=== PATIENT | female | born 1950 | race Caucasian/White ===

== ENCOUNTER → 2022-08-23 | Outpatient (CLI) | payer OTHER, SELFPAY ==
[2022-08-23 12:50] LABS: Absolute Lymphocyte Count 2.15 X10^3/uL (0.83-4.51); Absolute Neutrophil Count 3.7 X10^3/uL (2.0-7.7); Basophil# 0.02 X10^3/uL; Basophil% 0.3 % (0-1); Eosinophil# 0.06 X10^3/uL; Eosinophils% 0.9 % (0-5); Hematocrit 36.5 % (37-47); Lymphocyte # 2.15 X10^3/ul (0.83-4.51); Lymphocyte % 33.4 % (19-41); Mean Corp Hgb Conc 32.9 g/dL (32-36); Mean Corpuscular Hgb 31.6 pg (27.0-32.0); Mean Corpuscular Volume 96.1 fL (81-99); Mean Platelet Vol. 12.1 fl (6.2-12.0); Monocyte% 7.8 % (0-10); NRBC Flagged by Analyzer 0 % (0-5); Neutrophil % 57.4 % (47-70); Platelet Count 290 K/mm3 (150-450); RBC Distribution Width CV 13.9 % (11.6-14.6); RBC Distribution Width SD 49.3 fl (35.1-43.9); White Blood Count 6.4 K/mm3 (4.4-11.0)
[2022-08-23 13:27] LABS: ALB/GLOB Ratio 0.9 RATIO (0.9-2.4); AST(SGOT) 12 U/L (15-37); Alanine Aminotransfer ALT/SGPT 25 U/L (13-56); Albumin, Serum 3.5 g/dL (3.2-5.0); Alkaline Phosphatase 99 U/L (45-117); Anion Gap 7 (5-15); BUN 22 mg/dL (7-18); BUN/Creat Ratio 20.4 RATIO (10-20); Calcium,Total 8.8 mg/dL (8.5-10.1); Chloride 107 mmol/L (98-107); Cholesterol 287 mg/dL (200); Creatinine, Serum 1.08 mg/dL (0.55-1.02); EST Glomerular Filtration Rate 53 mL/min (>60); Est Glom Filt Rate - Afr Amer 65 mL/min (>60); Free T3 2.6 pg/mL (2.18-3.98); Glucose 128 mg/dL (74-106); High Density Lipoprotein 37 mg/dL; Potassium 3.5 mmol/L (3.5-5.1); Protein, Total 7.5 g/dL (6.4-8.2); Sodium Level 140 mmol/L (136-145); T4 Free Direct 0.79 ng/dL (0.76-1.46); Thyroid Stim Hormone (TSH) 1.54 uIU/mL (0.358-3.74); Triglycerides 279 mg/dL; Very Low Density Lipoprotein 56 mg/dL (5-40)
== END | disposition home or self-care (01) ==
LOC: LAB 11:36
PROVIDERS: PCP Family Medicine; Visit Provider Family Medicine
DX: E03.9 Hypothyroidism, unspecified (principal); E78.5 Hyperlipidemia, unspecified; Z51.81 Encounter for therapeutic drug level monitoring
CPT/HCPCS: 36415; 80053; 80061; 84439; 84443; 84481; 85025

== ENCOUNTER → 2023-02-24 | Outpatient (CLI) | payer OTHER, SELFPAY ==
[2023-02-24 11:52] LABS: Cholesterol 316 mg/dL (200); High Density Lipoprotein 52 mg/dL; Triglycerides 106 mg/dL; Very Low Density Lipoprotein 21 mg/dL (5-40)
== END | disposition home or self-care (01) ==
LOC: BFHLAB 09:53
PROVIDERS: PCP Family Medicine; Referring Provider Family Medicine; Visit Provider Family Medicine
DX: E78.5 Hyperlipidemia, unspecified (principal)
CPT/HCPCS: 36415; 80061

== ENCOUNTER → 2023-05-28 | Outpatient (CLI) | payer OTHER, SELFPAY ==
[2023-05-28 15:57] LABS: AST(SGOT) 9 U/L (15-37); Alanine Aminotransfer ALT/SGPT 18 U/L (13-56); Albumin, Serum 3.8 g/dL (3.2-5.0); Alkaline Phosphatase 92 U/L (45-117); Anion Gap 8 (5-15); BUN 27 mg/dL (7-18); BUN/Creat Ratio 24.3 RATIO (10-20); Calcium,Total 9.3 mg/dL (8.5-10.1); Chloride 110 mmol/L (98-107); Cholesterol 292 mg/dL (200); Creatinine, Serum 1.11 mg/dL (0.55-1.02); EST Glomerular Filtration Rate 52 mL/min (>60); Est Glom Filt Rate - Afr Amer 62 mL/min (>60); Globulin 3.9 g/dL (2.2-4.2); Glucose 122 mg/dL (74-106); High Density Lipoprotein 56 mg/dL; Potassium 3.9 mmol/L (3.5-5.1); Protein, Total 7.7 g/dL (6.4-8.2); Sodium Level 140 mmol/L (136-145); Triglycerides 93 mg/dL; Very Low Density Lipoprotein 19 mg/dL (5-40)
== END | disposition home or self-care (01) ==
PROVIDERS: PCP Family Medicine; Referring Provider Family Medicine; Visit Provider Family Medicine
DX: E78.5 Hyperlipidemia, unspecified (principal); Z51.81 Encounter for therapeutic drug level monitoring
CPT/HCPCS: 36415; 80053; 80061

== ENCOUNTER → 2023-09-01 | Outpatient (CLI) | payer OTHER, SELFPAY ==
[2023-09-01 15:16] LABS: Absolute Lymphocyte Count 2.06 X10^3/uL (0.83-4.51); Absolute Neutrophil Count 2.8 X10^3/uL (2.0-7.7); Basophil# 0.03 X10^3/uL; Basophil% 0.5 % (0-1); Eosinophil# 0.13 X10^3/uL; Eosinophils% 2.3 % (0-5); Hematocrit 28.7 % (37-47); Hemoglobin 8.6 g/dL (12.0-15.0); Lymphocyte # 2.06 X10^3/ul (0.83-4.51); Lymphocyte % 36.9 % (19-41); Mean Platelet Vol. 12.4 fl (6.2-12.0); Monocyte# 0.59 X10^3/uL; Monocyte% 10.6 % (0-10); NRBC Flagged by Analyzer 0 % (0-5); Neutrophil # 2.76 X10^3/uL (2.7-7.7); Neutrophil % 49.5 % (47-70); Platelet Count 331 K/mm3 (150-450); RBC Distribution Width CV 13.4 % (11.6-14.6); RBC Distribution Width SD 49.1 fl (35.1-43.9); Red Blood Count 2.87 M/mm3 (4.2-5.4); White Blood Count 5.6 K/mm3 (4.4-11.0)
[2023-09-01 15:35] LABS: Hemoglobin A1c 5.8 % (3.8-5.6)
[2023-09-01 15:46] LABS: ALB/GLOB Ratio 0.9 RATIO (0.9-2.4); AST(SGOT) 13 U/L (15-37); Alanine Aminotransfer ALT/SGPT 20 U/L (13-56); Albumin, Serum 3.6 g/dL (3.2-5.0); Alkaline Phosphatase 94 U/L (45-117); Anion Gap 7 (5-15); BUN 26 mg/dL (7-18); BUN/Creat Ratio 21.7 RATIO (10-20); Calcium,Total 8.7 mg/dL (8.5-10.1); Chloride 111 mmol/L (98-107); Cholesterol 252 mg/dL (200); EST Glomerular Filtration Rate 47 mL/min (>60); Est Glom Filt Rate - Afr Amer 57 mL/min (>60); Globulin 3.8 g/dL (2.2-4.2); Glucose 133 mg/dL (74-106); High Density Lipoprotein 54 mg/dL; Potassium 4.1 mmol/L (3.5-5.1); Protein, Total 7.4 g/dL (6.4-8.2); Sodium Level 141 mmol/L (136-145); Thyroid Stim Hormone (TSH) 1.37 uIU/mL (0.358-3.74); Triglycerides 120 mg/dL; Very Low Density Lipoprotein 24 mg/dL (5-40)
== END | disposition home or self-care (01) ==
LOC: BFHLAB 13:06
PROVIDERS: PCP Family Medicine; Visit Provider Family Medicine
DX: E78.5 Hyperlipidemia, unspecified (principal); I10 Essential (primary) hypertension; Z51.81 Encounter for therapeutic drug level monitoring; R73.01 Impaired fasting glucose
CPT/HCPCS: 36415; 80053; 80061; 83036; 84443; 85025

== ENCOUNTER → 2023-09-23 | Outpatient (CLI) | payer OTHER, SELFPAY ==
[2023-09-23 14:40] LABS: Hematocrit 29.5 % (37-47)
== END | disposition home or self-care (01) ==
LOC: PAVLAB 14:29
PROVIDERS: PCP Family Medicine; Referring Provider Surgery; Visit Provider Surgery
DX: D64.9 Anemia, unspecified (principal)
CPT/HCPCS: 36415; 85014; 85018

== ENCOUNTER 2023-10-15 07:18 | Day surgery (SDC) | payer OTHER, SELFPAY ==
[2023-10-15] VITALS (7 sets, daily range): BP systolic 106–140; BP diastolic 64–83; PULSE 78–103; RESP 16–18; TEMP 36.3–36.7; O2SAT 95–100; BMI 34.7
[2023-10-15] MEDS: Lactated Ringers 1,000 ML 15 ML IV (07:48)
--- NOTE | 2023-10-15 07:55 | PCM.HP.BLA ---
History and Physical Date of Admission: 10/15/23 Date of Service: 09/22/23 MR#: [id number] Acct: [id number] Name: JUANI TRINH Rep #: [id number] : 1950 Provider: Dr. Hafsa Lindsay MD Age/Sex: 73/F Location: [facility] Status: Signed Intake Vital Signs 09/22/2314:34 Weight: 202 lb BP 164/83 H Blood Pressure Location Rt brachial Position Sitting Respiration 17 Pulse 100 Pulse Source Monitor Pulse Oximetry (%) 98 Oxygen Delivery Method room air Intake Visit Reasons: RECTAL BLEEDING Chief Complaint: rectal bleeding Is patient in pain?: No Allergies No Known Allergies Allergy (Verified 09/22/23 14:35) Medications Hydrocortisone 2.5%/lidocaine 5% suppository (cmpd) (hydrocortisone 2.5%/lidocaine 5% suppository (compound)) #30 ea 09/22/23 [Rx Confirmed 09/22/23] bisoprolol 2.5 mg-hydrochlorothiazide 6.25 mg tablet 1 tab PO DAILY 09/22/23 [History Confirmed 09/22/23] diphenhydramine 25 mg-acetaminophen 500 mg tablet (Acetaminophen PM Extra Strength) 1 tab PO QHS 09/22/23 [History Confirmed 09/22/23] fluoxetine 10 mg capsule 10 mg PO DAILY 09/22/23 [History Confirmed 09/22/23] gemfibrozil 600 mg tablet 600 mg PO BID 09/22/23 [History Confirmed 09/22/23] latanoprost 0.005 % eye drops 1 drp ophthalmic (eye) QPM 09/22/23 [History Confirmed 09/22/23] metformin 500 mg tablet 500 mg PO DAILY 09/22/23 [History Confirmed 09/22/23] pravastatin 10 mg tablet 10 mg PO DAILY 09/22/23 [History Confirmed 09/22/23] PFSH Surgical History (Updated 09/22/23 @ 14:32 by Hilaria Rodriguez) H/O: hysterectomy Family History (Updated 09/22/23 @ 14:33 by Hilaria Rodriguez) Mother Hypertension Bleeding disorderSister HypertensionBrother Hypertension Kidney disease Social History (Updated 09/22/23 @ 14:33 by Hilaria Rodriguez) Smoking Status: Former smoker HPI HPI HPI: 73-year-old female presents for EGD and colonoscopy due to anemia. Patient's last hemoglobin was 8.6 previously was 12 or between 10 and 11. Patient's never had previous EGD. Patient states she has had bright red blood with clots noticed initially September 03 for 2 days then she did not have it for a week and she has been having it about every other day since. Patient does have hemorrhoids denies any pain with her hemorrhoids. Patient last colonoscopy was in [address] Newberry negative for per patient. Patient states she does feel bloated often denies any nausea or vomiting denies any reflux symptoms. Patient states she has bowel movements daily. ROS General General: Yes weight change and fatigue; No appetite, colon cancer, breast cancer or weakness HEENT HEENT: No difficulty swallowing, eye injury, eye surgery, swollen glands or hoarseness Endo Endocrine: No thyroid disease, diabetes mellitus, thyroid cancer, Hair loss, heat intolerance or cold intolerance Skin Skin: No rash or changing moles Musc Musculoskeletal: Yes back problems; No arthritis, rheumatoid arthritis, gout or joint pain Cardio Cardiovascular: Yes high blood pressure; No murmur, pacemaker, heart disease, atrial fibrillation, heart attack, heart stent, palpitations, shortness of breat with exertion or chest pain Psych Psychiatric: Yes anxiety; No depression or hearing voices Resp Respiratory: Yes shortness of breath, No sleep apnea, No cough, No COPD, No asthma, No emphysema and No wheezing Gastro Gastrointestinal: No abdominal pain, No nausea or vomiting, No diarrhea, No constipation, Yes blood in stool, No acid reflux, Yes hemorrhoids, No ulcers, No gallbladder problem and No black,tarry stools Anirudh Hematologic: No blood thinners, No blood disorders, No bleeding, No anemia and No blood clots Neuro Neurologic: No system reviewed and no additional complaints, except as documented, No as per HPI, No abnormal gait, No abnormal hearing, No abnormal movements, No abnormal speech, No behavioral changes, No burning sensations, No confusion, No convulsions, No disequilibrium, No dizziness, No localized weakness, No frequent falls, No headache(s), No lack of coordination, No loss of vision, No memory loss, Yes numbness, No other visual disturbances, No radicular pain, No restless legs, No sensory deficit, No syncope, Yes tingling, No tremor(s), No weakness and No other Exam Const General: cooperative, healthy appearing, comfortable and no acute distress [facility] Head: normocephalic and atraumatic Neck Neck: supple Resp Effort & Inspection: normal respiratory effort Cardio Rate: regular rate GI Inspection: non-distended Palpation: soft and nontender Other: Patient has grade 3 internal hemorrhoids on the right side which appear to be irritated likely source of bleeding, no masses on LEMUEL. Skin General: no rashes or lesions noted Neuro General: CN's II-XI intact bilaterally Extrem General: normal to inspection Psych Mental Status: mental status grossly normal Attitude: cooperative Assessment and Plan Assessment and Plan (1) Hemorrhoids: Status: Acute (2) Anemia: Status: Acute (3) Blood in stool: Status: Acute Orders: Orders HH, Hemoglobin & Hematocrit 09/23/23 D64.9 - Anemia, unspecified Dr. Hafsa Lindsay MD Colonoscopy 10/15/23 Mary Grace MICHEL PA-C EGD 10/15/23 Mary Grace MICHEL PA-C Medications: New Hydrocortisone 2.5%/lidocaine 5% suppository (cmpd) (hydrocortisone 2.5%/lidocaine 5% suppository (compound)) BID 30 ea 0RF hemorrhoids K64.9 - Unspecified hemorrhoids Dr. Hafsa Lindsay MD Plan Give patient suppositories for her hemorrhoids see if that helps improve the irritation as likely they are bleeding some. Also plan for an EGD and colonoscopy. I have discussed the above with the patient. I have offered the patient esophagogastroduodenoscopy and colonoscopy for evaluation. I have explained the risks/benefits of the procedure and described the procedure. I have discussed the risks with the patient, including but not limited to: infection, bleeding, perforation of the GI tract requiring emergency surgery, inability to complete the procedure, injury to any internal organs, complications of anesthesia, etc. - the patient understands and agrees to proceed. I have answered all the patient's questions to the patient's satisfaction and the patient has no further questions. The patient has been given instructions for the colon cleansing preparation. 1 day of clears, MiraLAX Dulcolax split prep. Addendum: Patient's recheck hemoglobin is 9 from 8.6. Hafsa Lindsay M.D. Pager: [phone] [facility] [address] [place] [address], [facility], [address] [place] [address] Office: [phone] Coding Level of Care Code Off vis,new,level 3 Diagnoses Hemorrhoids K64.9 Anemia D64.9 Blood in stool K92.1 09/24/23 0921 <Electronically signed by Hafsa Lindsay MD> Date Hafsa Lindsay MD
[2023-10-15 08:23] LABS: Bedside Glucose 157 mg/dL (74-106)
--- NOTE | 2023-10-15 08:45 | COLBX_PTH ---
PATHOLOGY RESULTS PATIENT: JUANI TRINH LOC: EN U#:[id number] AGE/SX: 73/F ROOM: RE10/15/[address]: Dr. Hafsa Lindsay MD : 1950 BED: DIS: 10/15/2023 SPEC #: [id number] RECD: 10/15/23 14:17 STATUS: GENEVA RAVI #: [id number] BRIE: 10/15/23 08:[address]: Hafsa Lindsay DEPT: SURGICAL PATHOLOGY RECD BY: Lovely Rivas ENTERED: 10/16/23 07:09 SP TYPE: COLON BX OTHR DR: Dr. Zoie Chang DO Tissues: Pylorus Stomach, NOS Transverse colon Rectum, NOS Procedures: Special Stain Group II Surgery Specimen Level IV Alcian Blue/PAS (control) HEADER OPERATION: Colonoscopy with biopsy and polypectomy, EGD with biopsies PRE-OP DIAGNOSIS: Hemorrhoids, anemia, blood in stool TISSUE SUBMITTED: A - Prepyloric ulcer biopsy for H. pylori and histology, B - Gastroesophageal junction biopsy, C - Transverse colon polyp biopsy, D - Rectal polyp MICROSCOPIC DIAGNOSIS A. Prepyloric ulcer, biopsy: Mild gastritis. See microscopic description and comment. B. Gastroesophageal junction, biopsy: Fragments of gastroesophageal mucosa with chronic inflammation. Intestinal metaplasia (goblet cell metaplasia) not identified. See comment. C. Transverse colon polyp, biopsy: Tubular adenoma. Pigment laden macrophages, consistent with melanosis coli. D. Rectal polyp, polypectomy: Tubular adenoma. Pigment laden macrophages, consistent with melanosis coli. SJ:tawanda 10/17/2023 COMMENT A. The results of immunohistochemistry for Helicobacter pylori will be reported separately ([id number]). B. Alcian blue/PAS stain with matched control is used in the evaluation of the specimen. MICROSCOPIC DESCRIPTION Slides are reviewed. A. The specimen shows fragments of gastric mucosa with chronic inflammatory cell infiltrates in the lamina propria consisting of lymphocytes and plasma cells, consistent with mild chronic gastritis. GROSS DESCRIPTION A - Received in fixative is one container labeled with the patient's name and designated prepyloric ulcer biopsy. The specimen consists of one irregular fragment of light smith soft tissue that measures 0.4 x 0.4 x 0.1 cm. The specimen is totally submitted in one cassette. B - Received in fixative is one container labeled with the patient's name and designated GE junction biopsy. The specimen consists of multiple irregular fragments of light smith soft tissue that in aggregate measure 0.5 x 0.3 x 0.1 cm. The specimen is totally submitted in one cassette. C - Received in fixative is one container labeled with the patient's name and designated transverse colon polyp biopsy. The specimen consists of one irregular fragment of light smith soft tissue that measures 0.2 x 0.2 x 0.1 cm. The specimen is totally submitted in one cassette. D - Received in fixative is one container labeled with the patient's name and designated rectal polyp. The specimen consists of a smith-pink polyp measuring 0.8 x 0.6 x 0.6 cm. The presumed base is inked. The polyp is bisected and submitted entirely in one cassette. / ANTONINO:tawanda 10/16/2023 TC:1 CPT: 15410 x4, 91533
--- NOTE | 2023-10-15 08:45 | IMM_PTH ---
PATHOLOGY RESULTS PATIENT: JUANI TRINH LOC: EN U#:[id number] AGE/SX: 73/F ROOM: RE10/15/[address]: Dr. Hafsa Lindsay MD : 1950 BED: DIS: 10/15/2023 SPEC #: [id number] RECD: 10/16/23 08:51 STATUS: GENEVA REQ #: [id number] BRIE: 10/15/23 08:[address]: Hafsa Lindsay DEPT: IMMUNOHISTOCHEMISTRY RECD BY: Leila Sanchez ENTERED: 10/16/23 08:52 SP TYPE: IMMUNO OTHR DR: Dr. Zoie Chang, DO Tissues: Pyloric antrum Procedures: H Pylori (initial) PHYSICIAN & INSTITUTION [place] [address] SPECIMEN INFORMATION: Tissue Source: A - Prepyloric ulcer Clinical Info: Hemorrhoids, anemia, blood in stool Specimen Number: [id number] CPT code: 43237 METHODOLOGY: Deparaffinized sections of prefer/formalin-fixed tissue or PAP/DQ stained slides are incubated with monoclonal/polyclonal antibodies/oligonucleotide probes. Localization is made via biotin free immunoperoxidase method. Appropriate controls are performed and reacted as expected. Results on target cell population are indicated in the following table: RESULTS: ANTIBODY / CLONE RESULT Block A H Pylori (polyclonal) negative These tests were developed and their performance characteristics determined by [facility]. They may not have been cleared or approved by the U.S. Food and Drug Administration. The FDA has determined that such clearance or approval is not necessary. The above immunohistochemical/dualISH markers are ordered and reviewed by the Pathologist. INTERPRETATION: A. Prepyloric ulcer, biopsy: Negative for Helicobacter pylori organisms. ANTONINO:tawanda 10/17/2023
--- NOTE | 2023-10-15 09:20 | OP.EGD_ITS ---
Patient Name: Candelaria Keller Procedure Date: 10/15/2023 8:37 AM Date of : 1950 Age: 73 Procedure: Upper GI endoscopy Indications: Iron deficiency anemia Providers: Hafsa Lindsay MD Referring MD: Zoie Chang Medicines: Monitored Anesthesia Care Patient Profile: This is a 73 year old female. Complications: No immediate complications. Procedure: Pre-Anesthesia Assessment: - Prior to the procedure, a History and Physical was performed, and patient medications and allergies were reviewed. The patient's tolerance of previous anesthesia was also reviewed. The risks and benefits of the procedure and the sedation options and risks were discussed with the patient. All questions were answered, and informed consent was obtained. Prior Anticoagulants: The patient has taken no anticoagulant or antiplatelet agents. ASA Grade Assessment: Per anesthesia. After reviewing the risks and benefits, the patient was deemed in satisfactory condition to undergo the procedure. After obtaining informed consent, the endoscope was passed under direct vision. Throughout the procedure, the patient's blood pressure, pulse, and oxygen saturations were monitored continuously. The Colonoscope was introduced through the mouth, and advanced to the second part of duodenum. The upper GI endoscopy was accomplished without difficulty. The patient tolerated the procedure well. Scope In: 8:46:03 AM Scope Out: 8:52:01 AM Total Procedure Duration Time 0 hours 5 minutes 58 seconds Findings: The Z-line was irregular and was found 35 cm from the incisors. Biopsies were taken with a cold forceps for histology. One non-bleeding cratered gastric ulcer with no stigmata of bleeding was found in the prepyloric region of the stomach. The lesion was 6 mm in largest dimension. Biopsies were taken with a cold forceps for histology. Biopsies were taken with a cold forceps for Helicobacter pylori cultures. The examined duodenum was normal. The cardia and gastric fundus were normal on retroflexion. Impression: - Z-line irregular, 35 cm from the incisors. Biopsied. - Non-bleeding gastric ulcer with no stigmata of bleeding. Biopsied. - Normal examined duodenum. Recommendation: - Await pathology results. - Discharge patient to home. - Resume previous diet. - Use Protonix (pantoprazole) 40 mg PO daily. - Use sucralfate tablets 1 gram PO QID for 2 weeks. - Continue present medications. Procedure Code(s): --- Professional --- 30767, Esophagogastroduodenoscopy, flexible, transoral; with biopsy, single or multiple Diagnosis Code(s): --- Professional --- K22.89, Other specified disease of esophagus K25.9, Gastric ulcer, unspecified as acute or chronic, without hemorrhage or perforation D50.9, Iron deficiency anemia, unspecified CPT copyright 2021 [employer]. All rights reserved. The codes documented in this report are preliminary and upon telephone collector review may be revised to meet current compliance requirements. MD Hafsa Escobar MD 10/15/2023 9:19:54 AM This report has been signed electronically. Number of Addenda: 0 Note Initiated On: 10/15/2023 8:37 AM
--- NOTE | 2023-10-15 09:20 | OP.CCLET_ITS ---
10/15/2023 Zoie Chang [address] [place] [address] Re : Upper GI endoscopy procedure for Candelaria Parkdior Dear Dr. Chang This procedure was performed on Sunday, October 15, 2023. My impressions and recommendations are as follows: Impressions : - Z-line irregular, 35 cm from the incisors. Biopsied. - Non-bleeding gastric ulcer with no stigmata of bleeding. Biopsied. - Normal examined duodenum. Recommendations : - Await pathology results. - Discharge patient to home. - Resume previous diet. - Use Protonix (pantoprazole) 40 mg PO daily. - Use sucralfate tablets 1 gram PO QID for 2 weeks. - Continue present medications. My findings are described in the full procedure note, which is enclosed. If I can be of further assistance, please feel free to contact me at Doctor phone number(s): , Work: . Sincerely, MD Hafsa Escobar MD 10/15/2023 9:19:54 AM This report has been signed electronically.
--- NOTE | 2023-10-15 09:24 | OP.CCLET_ITS ---
10/15/2023 Zoie Chang [address] [facility] [place] [address] Re : Colonoscopy procedure for Candelaria Keller Dear Dr. Chang This procedure was performed on Sunday, October 15, 2023. My impressions and recommendations are as follows: Impressions : - Hemorrhoids found on perianal exam. - External and internal hemorrhoids. - One 5 mm polyp in the rectum, removed with a hot snare. Resected and retrieved. - One less than 5 mm polyp in the transverse colon, removed with a cold biopsy forceps. Resected and retrieved. - The examination was otherwise normal. Recommendations : - Discharge patient to home. - Resume previous diet. - Continue present medications. - Await pathology results. - Repeat colonoscopy in 3 - 5 years for surveillance based on pathology results. My findings are described in the full procedure note, which is enclosed. If I can be of further assistance, please feel free to contact me at Doctor phone number(s): , Work: . Sincerely, MD Hafsa Escobar MD 10/15/2023 9:24:08 AM This report has been signed electronically.
--- NOTE | 2023-10-15 09:24 | OP.COLON_ITS ---
Patient Name: Candelaria Keller Procedure Date: 10/15/2023 8:52 AM Date of : 1950 Age: 73 Procedure: Colonoscopy Indications: Iron deficiency anemia Providers: Hafsa Lindsay MD Referring MD: Zoie Chang Medicines: Monitored Anesthesia Care Patient Profile: This is a 73 year old female. Last Colonoscopy: 2007. Complications: No immediate complications. Procedure: Pre-Anesthesia Assessment: - Prior to the procedure, a History and Physical was performed, and patient medications and allergies were reviewed. The patient's tolerance of previous anesthesia was also reviewed. The risks and benefits of the procedure and the sedation options and risks were discussed with the patient. All questions were answered, and informed consent was obtained. Prior Anticoagulants: The patient has taken no anticoagulant or antiplatelet agents. ASA Grade Assessment: Per anesthesia. After reviewing the risks and benefits, the patient was deemed in satisfactory condition to undergo the procedure. After I obtained informed consent, the scope was passed under direct vision. Throughout the procedure, the patient's blood pressure, pulse, and oxygen saturations were monitored continuously. The Colonoscope was introduced through the anus and advanced to the cecum, identified by the appendiceal orifice, ileocecal valve and palpation. The colonoscopy was performed without difficulty. The patient tolerated the procedure well. The quality of the bowel preparation was good. Scope In: 8:53:19 AM Scope Withdrawal Time 0 hours 14 minutes 24 seconds Scope Out: 9:12:12 AM Total Procedure Duration Time 0 hours 18 minutes 53 seconds Findings: Hemorrhoids were found on perianal exam. External and internal hemorrhoids were found. The hemorrhoids were Grade III (internal hemorrhoids that prolapse but require manual reduction). A 5 mm polyp was found in the rectum. The polyp was semi-pedunculated. The polyp was removed with a hot snare. Resection and retrieval were complete. A less than 5 mm polyp was found in the transverse colon. The polyp was sessile. The polyp was removed with a cold biopsy forceps. Resection and retrieval were complete. The exam was otherwise without abnormality. Impression: - Hemorrhoids found on perianal exam. - External and internal hemorrhoids. - One 5 mm polyp in the rectum, removed with a hot snare. Resected and retrieved. - One less than 5 mm polyp in the transverse colon, removed with a cold biopsy forceps. Resected and retrieved. - The examination was otherwise normal. Recommendation: - Discharge patient to home. - Resume previous diet. - Continue present medications. - Await pathology results. - Repeat colonoscopy in 3 - 5 years for surveillance based on pathology results. Procedure Code(s): --- Professional --- 65539, Colonoscopy, flexible; with removal of tumor(s), polyp(s), or other lesion(s) by snare technique 56726, 59, Colonoscopy, flexible; with biopsy, single or multiple Diagnosis Code(s): --- Professional --- K64.2, Third degree hemorrhoids D12.8, Benign neoplasm of rectum D12.3, Benign neoplasm of transverse colon (hepatic flexure or splenic flexure) D50.9, Iron deficiency anemia, unspecified CPT copyright 2021 [employer]. All rights reserved. The codes documented in this report are preliminary and upon media center director school review may be revised to meet current compliance requirements. MD Hafsa Escobar MD 10/15/2023 9:24:08 AM This report has been signed electronically. Number of Addenda: 0 Note Initiated On: 10/15/2023 8:52 AM
[2023-10-15] MEDS: Pantoprazole Sodium 40 MG in 0.9% Normal Saline (100mL MB+) 100 ML 330 MG IV (09:25)
== END 2023-10-15 10:15 | disposition home or self-care (01) ==
LOC: EN 07:20 → AC 07:22
PROVIDERS: PCP Family Medicine; Referring Provider Family Medicine; Visit Provider Surgery
PROC: 0DJD8ZZ Inspection of Lower Intestinal Tract, Via Natural or Artificial Opening Endoscopic (ICD-10-PCS; CPT 45378; principal; 2023-10-15 08:40)
DX: D12.3 Benign neoplasm of transverse colon (principal); E11.9 Type 2 diabetes mellitus without complications; K62.5 Hemorrhage of anus and rectum; Z87.891 Personal history of nicotine dependence; D50.9 Iron deficiency anemia, unspecified; K64.4 Residual hemorrhoidal skin tags; K25.9 Gastric ulcer, unspecified as acute or chronic, without hemorrhage or perforation; I10 Essential (primary) hypertension; K64.2 Third degree hemorrhoids; K29.70 Gastritis, unspecified, without bleeding; D12.8 Benign neoplasm of rectum; E78.00 Pure hypercholesterolemia, unspecified; Z79.84 Long term (current) use of oral hypoglycemic drugs; Z79.899 Other long term (current) drug therapy; K20.90 Esophagitis, unspecified without bleeding
CPT/HCPCS: 43239; 45380; 45385; 82962; 88305; 88313; 88342; J7120; J2405

== ENCOUNTER 2023-11-30 15:20 | Inpatient (IN) | payer MEDICARE, SELFPAY ==
[2023-11-30 15:20] VITALS: BP 168/86; PULSE 103; RESP 14; TEMP 36.3; O2SAT 100; BMI 35.1
--- NOTE | 2023-11-30 15:33 | EKG12_ITS ---
Test Reason : SOB Blood Pressure : / mmHG Vent. Rate : 099 BPM Atrial Rate : 099 BPM P-R Int : 154 ms QRS Dur : 074 ms QT Int : 348 ms P-R-T Axes : 066 079 053 degrees QTc Int : 446 ms Normal sinus rhythm Nonspecific ST abnormality Abnormal ECG Confirmed by ANGELIKA STOKES, TAMAR ([id number]), editorial manager DIANE JACKSON ([id number]) on 12/08/2023 9:38:23 AM Referred By: SHALINI Confirmed By:SHANT CARNEY MD
--- NOTE | 2023-11-30 15:33 | EDS_ITS ---
HPI History of Present Illness Chief Complaint: Shortness of Breath Informant: patient Narrative Narrative: 73-year-old patient has had dyspnea with exertion less than 1 block, but better when resting, for the past 3 or 4 months. Initially she went to her doctor and her hemoglobin was about 8.5 according to the patient, she had been having some rectal bleeding and she then saw Dr. Lindsay and had a colonoscopy scheduled for October, which happened and saw internal hemorrhoids, and she had a repeat hemoglobin just prior to that it was going up to around 9. She states the bleeding has completely resolved and she has had no melena or bleeding from elsewhere. No history of blood clots. She denies any chest discomfort with exertion but today she was simply walking into [employer] around 4 hours ago and she felt like the dyspnea was worse, she had some fluttering sensation in her chest that she still feels but no discomfort otherwise, and felt lightheaded to the point where she felt like she might pass out but did not. She still feels a little lightheaded and shaky and weak all over, all of this is new today. She has no history of heart or lung problems that she knows of. No history of dysrhythmias. She is not anticoagulated for any reason. No history of DVT or PE. No recent hospitalization, travel out of the area, surgery except for the colonoscopy 1.5 months ago, and no other immobilization. No leg pain or swelling. No orthopnea or PND. No fevers, chills, or cough now. [facility] Medical History Anxiety Diabetes Former smoker High cholesterol Shortness of breath on exertion Wears dentures Wears glasses Home Medications Hydrocortisone 2.5%/lidocaine 5% suppository (cmpd) (hydrocortisone 2.5%/lidocaine 5% suppository (compound)) #30 ea 09/22/23 [Rx Last Taken Unknown] diphenhydramine 25 mg-acetaminophen 500 mg tablet (Acetaminophen PM Extra S trength) 1 tab PO QHS 09/22/23 [History Last Taken Unknown] fluoxetine 10 mg capsule 10 mg PO DAILY 09/22/23 [History Last Taken 10/15/23] gemfibrozil 600 mg tablet 600 mg PO BID 09/22/23 [History Last Taken Unknown] latanoprost 0.005 % eye drops 1 drp ophthalmic (eye) QPM 09/22/23 [History Last Taken Unknown] pravastatin 10 mg tablet 10 mg PO DAILY 09/22/23 [History Last Taken Unknown] pantoprazole 40 mg tablet,delayed release 40 mg PO DAILY #30 tabs 10/15/23 [Rx Last Taken Unknown] sucralfate 1 gram tablet 1 g PO 4X/DAY #56 tabs 10/15/23 [Rx Last Taken Unknown] bisoprolol 5 mg-hydrochlorothiazide 6.25 mg tablet 1 tab PO DAILY 11/30/23 [History Last Taken Unknown] metformin 500 mg tablet,extended release 24 hr 500 mg PO DAILY 11/30/23 [History Last Taken Unknown] Allergy/AdvReac Type Severity Reaction Status Date / Time No Known Allergies Allergy Verified 11/30/23 15:22 Family History (Updated 09/22/23 @ 14:33 by Hilaria Rodriguez) Mother Hypertension Bleeding disorder Sister Hypertension Brother Hypertension Kidney disease Surgical History H/O: hysterectomy Social History Smoking Status: Former smoker ROS ROS ED Constitutional Constitutional ED: Reports malaise; Denies chills or fever(s) Eyes Eyes: Denies change in vision or diplopia ENT ENT ED: Denies rhinorrhea or sore throat Cardiovascular Cardiovascular: Reports lightheadedness and palpitations; Denies chest pain, orthopnea, paroxysmal nocturnal dyspnea, pedal edema or syncope Respiratory/Chest Respiratory/Chest: Reports dyspnea and dyspnea on exertion; Denies cough, orthopnea or paroxysmal nocturnal dyspnea Gastrointestinal Gastrointestinal: Denies abdominal pain, diarrhea, nausea or vomiting Genitourinary Genitourinary ED: Denies dysuria or hematuria Musculoskeletal Musculoskeletal: Denies back pain or neck pain Integumentary Denies abscess or rash Neurologic Neurologic: Denies headache(s), paresthesias or weakness Psychiatric Psychiatric: Denies anxiety or suicidal thoughts EXAM Physical Exam Const Vital Signs: 11/30/23 15:20 11/30/23 15:28 11/30/23 15:33 Temperature 97.4 F L Temperature Source Temporal Pulse Rate 103 H Respiratory Rate 14 Respiratory Effort Short of Breath Blood Pressure 168/86 H Blood Pressure Mean 113 Blood Pressure Source Blood Pressure Position Blood Pressure Location Pulse Ox 100 Oxygen Delivery Method Room Air Room Air Room Air 11/30/23 16:20 11/30/23 17:54 11/30/23 18:09 Temperature 97.5 F L 96.6 F L Temperature Source Temporal Temporal Pulse Rate 64 86 84 Respiratory Rate 16 18 13 Respiratory Effort Blood Pressure 156/78 H 139/68 H 149/73 H Blood Pressure Mean 104 91 98 Blood Pressure Source Monitor Monitor Blood Pressure Position Semi-Fowlers Semi-Fowlers Blood Pressure Location Right Arm Left Arm Pulse Ox 95 95 100 Oxygen Delivery Method Room Air Room Air Room Air Positive well nourished and well developed General Appearance ED: well developed and NAD HEENT Reports moist mucous membranes normocephalic and atraumatic Eyes PERRL and EOMs intact bilaterally Neck full ROM, supple and no JVD Resp normal respiratory effort and clear to auscultation bilaterally Cardio regular rate, regular rhythm and no murmurs Rate: tachycardic GI non-tender and non-distended Auscultation: normoactive bowel sounds Palpation: soft Back/Spine no CVA tenderness General Back: other FROM Extremity normal to inspection Extremity Narrative: No calf tenderness or palpable cords bilateral General Extremety ED: Negative for edema, pulses abnormal or tenderness General Extremity: Negative for edema or pulses abnormal Neuro oriented x3, CN's II-XII intact bilaterally and no sensory deficits noted Sensorium / Orientation: awake and alert Motor Exam: strength 5/5 throughout Psych mental status grossly normal Skin no rashes or lesions noted and no wounds MDM MDM MDM Narrative Medical decision making narrative: Differential here includes cardiopulmonary etiologies, hematologic etiologies, less likely infectious given her symptoms but pneumonia in the differential as well. DVT and PE were ruled out with her low Wells criteria score and a negative D-dimer. Her EKG is normal, 2 view chest x-ray on my interpretation is normal ruling out pneumonia, and her troponin is negative arguing against acute coronary syndrome and ventricular dysrhythmias. Her hemoglobin is 7.3. I suspect this is the etiology of her dyspnea. It is normocytic. The most likely cause would be loss through the GI tract given her recent history. We consented her for blood transfusion, after discussing pros and cons, she will be typed and crossed for 1 unit and she consents. In addition the Hemoccult was sent and is positive for blood. I reviewed her recent endoscopy, notable results documented below. I discussed with the surgeon on-call for Dr. Lindsay, Dr. Alvarado. Given that the patient may currently have active bleeding he read deferred to GI so I spoke with Dr. Mcclure who advises admitting the patient and agrees with everything else done. The patient has already been on PPI therapy. At this time with stable hemodynamics and no signs of active hemorrhage, I am holding off on a PPI gtt. History & Record Review Additional record(s) reviewed:: Prior outpatient record (Lower GI external and internal hemorrhoid. Upper GI nonbleeding gastric ulcer.) Lab Data Attestation: I reviewed the patient's lab results. Labs: Laboratory Results - last 24 hr 11/30/23 11/30/23 15:28 16:15 WBC 12.1 H RBC 2.88 L Hgb 7.3 L Hct 24.5 L MCV 85.1 MCH 25.3 L MCHC 29.8 L RDW Std Deviation 46.5 H RDW Coeff of Neo 15.0 H Plt Count 476 H MPV 11.7 Immature Gran % (Auto) 0.400 Neut % (Auto) 74.0 H Lymph % (Auto) 19.4 [place] % (Auto) 5.1 Eos % (Auto) 0.8 Baso % (Auto) 0.3 Absolute Neuts (auto) 9.0 H Absolute Lymphs (auto) 2.36 Nucleated RBC % 0 D-Dimer Quant (PE/DVT) < 0.27 L Sodium 137 Potassium 3.9 Chloride 110 H Carbon Dioxide 20.0 L Anion Gap 7 BUN 24 H Creatinine 1.31 H Estim Creat Clear Calc 41.91 Est GFR (MDRD) Af Amer 51 L Est GFR (MDRD) Non-Af 43 L BUN/Creatinine Ratio 18.3 Glucose 142 H Calcium 9.8 Iron 21 L TIBC 588 H Iron Saturation 3.6 L Ferritin 4 L Troponin I High Sens 6 B-Natriuretic Peptide 219.4 H Blood Type O POSITIVE Antibody Screen NEGATIVE Crossmatch See Detail Radiography Diagnostic Testing: Clinical Impression(s) from Imaging Studies Chest X-Ray 11/30/23 15:52 IMPRESSION: There are no acute findings. Electronically Signed: Baldo Thornton MD at 16:26 EST , Rhythm Strip Rhythm Strip: Sinus Tach Rate: 110 Ectopy: None EKG Initial EKG: Attestation: I personally reviewed and interpreted this EKG as follows: Interpretation: Sinus Rhythm (99) and No Acute Injury Pattern Comments: nml EKG Management Discussion w/another healthcare provider: Hospitalist and Senior Consumer Insights Consultant (Dr. Alvarado --> Dr. Mcclure) Critical Care Time Critical Care Time: Yes Critical care time (excluding procedures): 30-74 minutes (35 min), Including time spent:, Discussing w/Patient &/or Family/Financial Investment Adviser, Discussing w/Consultants, Arranging Admission or Transfer and Performing Direct Patient Care at Bedside Discharge Plan Triage Chief Complaint: Shortness of Breath ED Provider: Andrew Mills Dx/Rx/DC Orders Clinical Impression: Near syncope, ABLA (acute blood loss anemia), Occult GI bleeding Prescriptions: No Action pravastatin 10 mg tablet 10 mg PO DAILY gemfibrozil 600 mg tablet 600 mg PO BID fluoxetine 10 mg capsule 10 mg PO DAILY diphenhydramine-acetaminophen [Acetaminophen PM Extra Str] 25-500 mg tablet 1 tab PO QHS latanoprost 0.005 % drops 1 drp ophthalmic (eye) QPM Patient Comments: right eye (DME) hydrocortisone 2.5%/lidocaine 5% suppository (compound) Suppository See Rx Instructions .ROUTE Qty: 30 0RF Rx Instructions: BID pantoprazole 40 mg tablet,delayed release (DR/EC) 40 mg PO DAILY Qty: 30 5RF sucralfate [sucralfate] 1 gram tablet 1 g PO 4X/DAY Qty: 56 0RF Rx Instructions: Take 1 hour before meals and at bedtime bisoprolol-hydrochlorothiazide 5-6.25 mg tablet 1 tab PO DAILY metformin 500 mg tablet extended release 24 hr 500 mg PO DAILY Primary Care Provider: Zoie Chang Referrals: Zoie Chang DO [Primary Care Provider] - Disposition Disposition: [facility]
[2023-11-30 15:45] LABS: Absolute Lymphocyte Count 2.36 X10^3/uL (0.83-4.51); Basophil# 0.04 X10^3/uL; Basophil% 0.3 % (0-1); Eosinophils% 0.8 % (0-5); Hematocrit 24.5 % (37-47); Hemoglobin 7.3 g/dL (12.0-15.0); Lymphocyte # 2.36 X10^3/ul (0.83-4.51); Lymphocyte % 19.4 % (19-41); Mean Corp Hgb Conc 29.8 g/dL (32-36); Mean Corpuscular Hgb 25.3 pg (27.0-32.0); Mean Corpuscular Volume 85.1 fL (81-99); Mean Platelet Vol. 11.7 fl (6.2-12.0); Monocyte# 0.62 X10^3/uL; Monocyte% 5.1 % (0-10); NRBC Flagged by Analyzer 0 % (0-5); Neutrophil # 8.97 X10^3/uL (2.7-7.7); Platelet Count 476 K/mm3 (150-450); RBC Distribution Width SD 46.5 fl (35.1-43.9); Red Blood Count 2.88 M/mm3 (4.2-5.4); White Blood Count 12.1 K/mm3 (4.4-11.0)
--- NOTE | 2023-11-30 15:52 | RAD_ITS ---
STUDY: XR Chest 2 Views 11/30/2023 3:54 PM REASON FOR EXAM: Female, 73 years old. sob COMPARISON: None TECHNIQUE: XR Chest 2 Views FINDINGS: There is no demonstrated pleural abnormality. Normal heart size. Normal mediastinum. Normal manolo. Prominent appearing increased interstitial lung markings. Normal visualized pulmonary arteries. There is atherosclerotic calcification of the aortic arch with tortuosity. There are diffuse degenerative changes of the visualized thoracic spine. There is degenerative osteoarthritis of the bilateral shoulders. There are no acute findings of the upper abdomen. RAD/Chest PA and Lateral IMPRESSION: There are no acute findings. Electronically Signed: Baldo Thornton MD at 16:26 EST ,
[2023-11-30 15:53] LABS: D-Dimer Quantitative (DVT/PE) < 0.27 FEU/ug/m (0.27-0.49)
[2023-11-30 15:58] LABS: Anion Gap 7 (5-15); BUN 24 mg/dL (7-18); BUN/Creat Ratio 18.3 RATIO (10-20); Calcium,Total 9.8 mg/dL (8.5-10.1); Chloride 110 mmol/L (98-107); Creatinine, Serum 1.31 mg/dL (0.55-1.02); EST Glomerular Filtration Rate 43 mL/min (>60); Est Glom Filt Rate - Afr Amer 51 mL/min (>60); Estimated Creatinine Clearance 41.91 ml/min; Glucose 142 mg/dL (74-106); Potassium 3.9 mmol/L (3.5-5.1); Sodium Level 137 mmol/L (136-145); Troponin-I HS 6 pg/mL (3.0-54.0)
[2023-11-30 16:11] LABS: BNP,B-Type NATRIURETIC PEPTIDE 219.4 pg/mL (0-100)
[2023-11-30 16:20] VITALS: BP 156/78; PULSE 64; RESP 16; O2SAT 95
[2023-11-30 17:54] VITALS: BP 139/68; PULSE 86; RESP 18; TEMP 36.4; O2SAT 95
[2023-11-30 18:00] VITALS: BP 164/58; PULSE 86; RESP 18; TEMP 36.4; O2SAT 100
[2023-11-30 18:09] VITALS: BP 149/73; PULSE 84; RESP 13; TEMP 35.9; O2SAT 100
[2023-11-30 18:19] LABS: Ferritin 4 ng/mL (8-252); Iron 21 ug/dL (50-170); Iron Binding Capacity,Total 588 ug/dL (250-450); PERCENT IRON SATURATION 3.6 % (15.0-55.0)
--- NOTE | 2023-11-30 18:59 | HP.PCM.HOS_ITS ---
HPI - General General Date of Admission: 11/30/23 Date of Service: 11/30/23 Chief Complaint: SOB HPI Narrative JUANI TRINH, is a 73-year-old female history of GERD, diabetes, depression, high cholesterol who presented to [facility] ED 11/30/2023 with shortness of breath especially on exertion that has been worsening over the past 3 to 4 months. Patient went to her doctor and had a hemoglobin of 8.5, had been having some rectal bleeding and then saw Dr. Lindsay and had a colonoscopy in October at which time there were internal hemorrhoids and had a repeat hemoglobin prior to that which was around 9. Bleeding has completely resolved with no melena or bleeding from elsewhere. Earlier today she was walking to [employer] and she felt like her dyspnea was worse than usual and had some fluttering sensation in her chest but no chest pain, felt lightheaded but did not pass out. Still feeling somewhat shaky and weak so she presented to the hospital. Patient with low Wells score and negative D-dimer so DVT and PE were ruled out, EKG was normal, troponin normal, chest x-ray normal. Hemoglobin was found to be 7.3 and suspected to be the etiology of her dyspnea. FOBT positive and patient typed and crossed for 1 unit. Case was discussed w/ GI and it was recommended pt be admitted and GI will see in c/s. Pt evaluated at bedside and reports history as above. Has not had any fevers or any cough, no chest pain, no bleeding from anywhere or abdominal pain or nausea, only complains of the shortness of breath that worsened today with a presyncopal feeling and generalized weakness. Feeling a little bit better right now but still feels somewhat generally weak. [facility] Medical History Anxiety Diabetes Former smoker High cholesterol Shortness of breath on exertion Wears dentures Wears glasses Home Medications Hydrocortisone 2.5%/lidocaine 5% suppository (cmpd) (hydrocortisone 2.5%/lidocaine 5% suppository (compound)) #30 ea 09/22/23 [Rx Last Taken Unkn own] diphenhydramine 25 mg-acetaminophen 500 mg tablet (Acetaminophen PM Extra Strength) 1 tab PO QHS 09/22/23 [History Last Taken 11/29/23] fluoxetine 10 mg capsule 10 mg PO DAILY 09/22/23 [History Last Taken 11/29/23] gemfibrozil 600 mg tablet 600 mg PO BID 09/22/23 [History Last Taken 11/30/23] latanoprost 0.005 % eye drops 1 drp ophthalmic (eye) QPM 09/22/23 [History Last Taken 11/29/23] pravastatin 10 mg tablet 10 mg PO DAILY 09/22/23 [History Last Taken Unknown] pantoprazole 40 mg tablet,delayed release 40 mg PO DAILY #30 tabs 10/15/23 [Rx Last Taken 11/29/23] sucralfate 1 gram tablet 1 g PO 4X/DAY #56 tabs 10/15/23 [Rx Last Taken 11/30/23] bisoprolol 5 mg-hydrochlorothiazide 6.25 mg tablet 1 tab PO DAILY 11/30/23 [History Last Taken 11/29/23] metformin 500 mg tablet,extended release 24 hr 500 mg PO DAILY 11/30/23 [History Last Taken 11/30/23] Allergy/AdvReac Type Severity Reaction Status Date / Time No Known Allergies Allergy Verified 11/30/23 15:22 Family History (Updated 09/22/23 @ 14:33 by Hilaria Rodriguez) Mother Hypertension Bleeding disorder Sister Hypertension Brother Hypertension Kidney disease Surgical History H/O: hysterectomy Social History Smoking Status: Former smoker ROS ROS Narrative General: Denies fever/chills HENT: Denies headache, denies stuffy nose, denies sore throat EYES: Denies changes in vision Resp: Denies cough, increasing shortness of breath especially on exertion Cardiac: Denies chest pain GI: Denies abdominal pain, denies changes in bowel, denies nausea/vomiting : Denies changes in urination Extremity: Denies swelling MSK: Some generalized weakness Neuro: Denies any numbness/tingling earlier felt shaky and a little lightheaded Heme: Denies any bleeding or bruising Skin: Denies rashes Psychiatric: No complaints voiced Vital Signs Vital Signs Vital Signs: 11/30/23 15:20 11/30/23 15:28 11/30/23 15:33 Temperature 97.4 F L Temperature Source Temporal Pulse Rate 103 H Respiratory Rate 14 Respiratory Effort Short of Breath Blood Pressure 168/86 H Blood Pressure Mean 113 Blood Pressure Source Blood Pressure Position Blood Pressure Location Pulse Ox 100 Oxygen Delivery Method Room Air Room Air Room Air 11/30/23 16:20 11/30/23 17:54 11/30/23 18:09 Temperature 97.5 F L 96.6 F L Temperature Source Temporal Temporal Pulse Rate 64 86 84 Respiratory Rate 16 18 13 Respiratory Effort Blood Pressure 156/78 H 139/68 H 149/73 H Blood Pressure Mean 104 91 98 Blood Pressure Source Monitor Monitor Blood Pressure Position Semi-Fowlers Semi-Fowlers Blood Pressure Location Right Arm Left Arm Pulse Ox 95 95 100 Oxygen Delivery Method Room Air Room Air Room Air 11/30/23 18:00 Temperature 97.6 F L Temperature Source Pulse Rate 86 Respiratory Rate 18 Respiratory Effort Blood Pressure 164/58 H Blood Pressure Mean 93 Blood Pressure Source Blood Pressure Position Blood Pressure Location Pulse Ox 100 Oxygen Delivery Method Weight Weight: 89.896 kg Body Mass Index (BMI) 35.1 Physical Exam Narrative General: Alert, oriented, no apparent distress HEENT: Atraumatic, normocephalic Eyes: Anicteric, normal conjunctiva, extraocular movements grossly intact Neck: Supple Respiratory: Clear to auscultation bilaterally, normal respiratory effort Cardiovascular: Regular rate and rhythm GI: Soft, nontender, nondistended Extremities: No edema Musculoskeletal: Moving all extremities Neuro: No overt focal neurological deficits Skin: No rashes appreciated Psych: Cooperative Results Lab / Micro Data 11/30/23 15:28 11/30/23 15:28 Labs: Laboratory Results - last 24 hr 11/30/23 15:28: WBC 12.1 H, RBC 2.88 L, Hgb 7.3 L, Hct 24.5 L, MCV 85.1, MCH 25.3 L, MCHC 29.8 L, RDW Std Deviation 46.5 H, RDW Coeff of Neo 15.0 H, Plt Count 476 H, MPV 11.7, Immature Gran % (Auto) 0.400, Neut % (Auto) 74.0 H, Lymph % (Auto) 19.4, [place] % (Auto) 5.1, Eos % (Auto) 0.8, Baso % (Auto) 0.3, Absolute Neuts (auto) 9.0 H, Absolute Lymphs (auto) 2.36, Nucleated RBC % 0, D-Dimer Quant (PE/DVT) < 0.27 L, Sodium 137, Potassium 3.9, Chloride 110 H, Carbon Dioxide 20.0 L, Anion Gap 7, BUN 24 H, Creatinine 1.31 H, Estim Creat Clear Calc 41.91, Est GFR (MDRD) Af Amer 51 L, Est GFR (MDRD) Non-Af 43 L, BUN/Creatinine Ratio 18.3, Glucose 142 H, Calcium 9.8, Iron 21 L, TIBC 588 H, Iron Saturation 3.6 L, Ferritin 4 L, Troponin I High Sens 6, B-Natriuretic Peptide 219.4 H 11/30/23 16:15: Blood Type O POSITIVE, Antibody Screen NEGATIVE, Crossmatch See Detail Micro: Microbiology 11/30/23 16:00 Stool Stool Occult Blood (DENISSE) - Final Occult Blood Positive Rhythm Strip Rhythm Strip: Sinus Tach Rate: 110 Ectopy: None Imaging Radiology Impression Chest X-Ray 11/30/23 15:52 IMPRESSION: There are no acute findings. Electronically Signed: Baldo Thornton MD at 16:26 EST Reading Location ID and State: [facility] / [place] , Service support , Assessment & Plan Assessment/Plan (1) ABLA (acute blood loss anemia): (2) HTN (hypertension): (3) Occult GI bleeding: PLAN: Plan #Symptomatic acute on chronic Anemia 2/2 GIB, upper vs lower -Previous scope w/ hemorrhoids and GI ulcers -Hemoglobin 7.3, previous was 8.5/9 -FOBT positive -GI c/s -Patient to be transfused 1 unit -Trend H&H -PPI -Hemodynamically stable for floor #Dyspnea -Progressively worsening -Likely 2/2 her anemia -Patient to be transfused a unit -Low likelihood of DVT or PE, EKG normal, chest x-ray unremarkable, troponin within normal limits -BNP 219, slightly elevated with no previous values -Patient is anemic and this is likely contributed to her worsening dyspnea however cannot rule out cardiac etiology contributing especially with slight e levation in BNP -Will get echocardiogram -Daily weights, I's and O's -Will also get covid and resp panels given acute worsening today #HTN -Continue home medications # CKD stage III unclear subtype -GFR vacillates between 40-55 -Appears to be at baseline -Avoid nephrotoxic agents -Daily BMPs #GERD -Continue PPI #Type 2 diabetes mellitus -Glucose checks and sliding scale insulin -Hold metformin # Depression -On fluoxetine # Hyperlipidemia -On gemfibrozil and pravastatin #DVT ppx: SCDs Caridad Rapp MD Time spent in the patient's overall evaluation,decision-making process, review of diagnostic data, adjustment of management, discussion with other providers, nursing nursing and ancillary staff involved in patient's care documentation, 57 Minutes Charges/Coding Visit Charges Inpatient E&M: 69551 Init Hosp L2
--- NOTE | 2023-11-30 19:36 | ECHOD_ITS ---
Reason For Study: DYSPNEA/SOB Procedure This was a 2D Doppler, Color Flow transthoracic echocardiogram. Exam performed portable in patient room. The exam was abbreviated due to the COVID 19 protocol. Left Ventricle Normal LV size. The estimated ejection fraction is 65 %. No evidence for diastolic dysfunction. No regional wall motion abnormalities noted. Right Ventricle Normal RV size. Normal systolic function. Atria The left atrium is mildly enlarged. Normal right atrium. No doppler evidence for ASD. Mitral Valve There is no mitral valve stenosis. Trivial mitral valve insufficiency. Tricuspid Valve There is no tricuspid stenosis. Unable to estimate RV systolic pressure due to insufficient tricuspid regurgitant envelope. Trivial tricuspid valve insufficiency. Aortic Valve Trisinus/trileaflet aortic valve. There is no aortic stenosis. No aortic valve insufficiency. Pulmonic Valve There is no pulmonic valvular stenosis. No pulmonic valve insufficiency. Great Vessels Normal aortic root. Pericardium/Pleural No pericardial effusion. MMode/2D Measurements & Calculations LVIDd: 4.6 cm IVSd: 0.88 cm Ao root diam: 3.0 cm LVIDs: 3.0 cm LVPWd: 0.96 cm RVDd: 3.6 cm FS: 34.1 % LAV(MOD-bp): 49.8 ml LVAd ap4: 22.5 cm2 SV(MOD-sp4): 39.2 ml LAV(MOD-bp) Indexed: 25.8 ml/m2 LVLd ap4: 6.6 cm LAV(MOD-sp2): 45.5 ml EDV(MOD-sp4): 62.4 ml LAV(MOD-sp4): 46.0 ml EDV(sp4-el): 64.9 ml LVAs ap4: 12.5 cm2 LVLs ap4: 5.8 cm ESV(MOD-sp4): 23.2 ml ESV(sp4-el): 22.9 ml EF(MOD-sp4): 62.9 % EF(sp4-el): 64.7 % SV(sp4-el): 42.0 ml LA A4 area: 19.3 cm2 LA dimension(2D): 4.0 cm RA A4 area: 14.6 cm2 TAPSE: 2.4 cm Time Measurements MV dec time: 0.16 sec Doppler Measurements & Calculations MV E max kamran: 90.5 cm/sec Lat Peak E' Kamran: 9.6 cm/sec Med Peak E' Kamran: 9.0 cm/sec MV A max kamran: 84.4 cm/sec E/E' lat: 9.4 E/E' med: 10.1 MV E/A: 1.1 Ao V2 max: 133.4 cm/sec LV V1 max: 101.4 cm/sec PA V2 max: 84.9 cm/sec Ao max P.1 mmHg LV V1 max P.1 mmHg TR max kamran: 309.4 cm/sec TR max P.3 mmHg ECHO/Echo Complete Interpretation Summary The estimated ejection fraction is 65 %. No evidence for diastolic dysfunction. The left atrium is mildly enlarged. Trivial mitral valve insufficiency. Ordering Physician: Caridad Rapp Referring Physician: JACKIE ODELL Performed By: Carmen Mcnally RDCS
[2023-11-30 19:46] VITALS: BMI 35.3
[2023-11-30 20:28] VITALS: BP 134/67; PULSE 91; RESP 16; TEMP 36.3; O2SAT 98
[2023-11-30] MEDS: Latanoprost 0.005% 1 Bottle 1 DRP OPHTHALMIC (22:13)
[2023-11-30] MEDS: Pantoprazole Sodium 40 MG in 0.9% Normal Saline (100mL MB+) 100 ML 330 MG IV (22:13)
[2023-11-30] MEDS: 0.9% Normal Saline (250mL Bag) 250 ML 15 ML IV (22:13)
[2023-11-30] MEDS: Gemfibrozil 600 MG Tablet PO (22:14)
[2023-11-30] MEDS: Pravastatin 20 MG Tablet 10 MG PO (22:14)
--- NOTE | 2023-11-30 22:44 | PCM.HOSP.N ---
Hospitalist Note RN reporting rapid SARS COVID positive. Will obtain PCR to be certain, given presentation could be false positive and would complicate endoscopy potentially.
[2023-11-30 22:48] LABS: Bedside Glucose 101 mg/dL (74-106)
--- NOTE | 2023-11-30 23:00 | CON.PCM.GI_ITS ---
HPI Consult Data Date of Consult: 11/30/23 HPI Narrative Reason for Consultation: GI bleed HPI Narrative: JUANI TRINH, is a 73-year-old female history of GERD, diabetes, depression, high cholesterol who presented to [facility] ED 11/30/2023 with shortness of breath especially on exertion that has been worsening over the past 3 to 4 months. Patient went to her doctor and had a hemoglobin of 8.5, had been having some rectal bleeding and then saw Dr. Lindsay and had a colonoscopy in October at which time there were internal hemorrhoids and had a repeat hemoglobin prior to that which was around 9. Bleeding has completely resolved with no melena or bleeding from elsewhere. Earlier today she was walking to [place] and she felt like her dyspnea was worse than usual and had some fluttering sensation in her chest but no chest pain, felt lightheaded but did not pass out. Still feeling somewhat shaky and weak so she presented to the hospital. Patient with low Wells score and negative D-dimer so DVT and PE were ruled out, EKG was normal, troponin normal, chest x-ray normal. Hemoglobin was found to be 7.3 and suspected to be the etiology of her dyspnea. FOBT positive and patient typed and crossed for 1 unit. [facility] Medical History (Updated 11/30/23 @ 19:50 by Flor Olson) Anxiety Diabetes Former smoker High cholesterol Shortness of breath on exertion Wears dentures Wears glasses Home Medications diphenhydramine 25 mg-acetaminophen 500 mg tablet (Acetaminophen PM Extra Strength) 1 tab PO QHS 09/22/23 [History Last Taken 11/29/23] fluoxetine 10 mg capsule 10 mg PO DAILY 09/22/23 [History Last Taken 11/29/23] gemfibrozil 600 mg tablet 600 mg PO BID 09/22/23 [History Last Taken 11/30/23] latanoprost 0.005 % eye drops 1 drp ophthalmic (eye) QPM 09/22/23 [History Last Taken 11/29/23] pravastatin 10 mg tablet 10 mg PO DAILY 09/22/23 [History Last Taken Unknown] sucralfate 1 gram tablet 1 g PO 4X/DAY #56 tabs 10/15/23 [Rx Last Taken 11/30/23] bisoprolol 5 mg-hydrochlorothiazide 6.25 mg tablet 1 tab PO DAILY 11/30/23 [History Last Taken 11/29/23] metformin 500 mg tablet,extended release 24 hr 500 mg PO DAILY 11/30/23 [History Last Taken 11/30/23] ferrous sulfate 325 mg (65 mg iron) tablet 325 mg PO QODAY #30 tabs 12/02/23 [Rx Last Taken Unknown] pantoprazole 40 mg tablet,delayed release 40 mg PO BID #60 tabs 12/02/23 [Rx Last Taken Unknown] Allergy/AdvReac Type Severity Reaction Status Date / Time No Known Allergies Allergy Verified 11/30/23 15:22 Family History (Updated 09/22/23 @ 14:33 by Hilaria Rodriguez) Mother Hypertension Bleeding disorder Sister Hypertension Brother Hypertension Kidney disease Surgical History H/O: hysterectomy Social History Smoking Status: Former smoker ROS ROS Narrative General: Denies fever/chills HENT: Denies headache, denies stuffy nose, denies sore throat EYES: Denies changes in vision Resp: Denies cough, increasing shortness of breath especially on exertion Cardiac: Denies chest pain GI: Denies abdominal pain, denies changes in bowel, denies nausea/vomiting : Denies changes in urination Extremity: Denies swelling MSK: Some generalized weakness Neuro: Denies any numbness/tingling earlier felt shaky and a little lightheaded Heme: Denies any bleeding or bruising Skin: Denies rashes Psychiatric: No complaints voiced Physical Exam Const alert and no apparent distress Constitutional Narrative: no respiratory distress. no conversational dyspnea. HEENT head/scalp atraumatic and moist oral mucous membranes Lab / Micro Data 12/02/23 06:25 12/01/23 04:00 Labs: Laboratory Results - last 24 hr 12/02/23 06:25: Gastrin 71 12/02/23 06:25: Gastrin Cancelled, IgA 163, Chromogranin A 209.1 H, c-ANCA Antibody <1:20, Atypical p-ANCA 1:40 H, p-ANCA Antibody <1:20, Endomysial IgA Ab Negative, Tiss Transglutamin IgG 4, Tiss Transglutamin IgA <2, Anti-Parietal Cell Ab 6.2, Anti-Gliadin IgG Ab 7, Anti-Gliadin IgA Ab 4, Intrinsic Factor Ab 1.0 Rhythm Strip Rhythm Strip: Sinus Tach Rate: 110 Ectopy: None Assessment & Plan Assessment/Plan (1) ABLA (acute blood loss anemia): (2) HTN (hypertension): (3) Occult GI bleeding: PLAN: Plan #Symptomatic acute on chronic Anemia 2/2 GIB, upper vs lower -Previous scope w/ hemorrhoids and GI ulcers -Hemoglobin 7.3, previous was 8.5/9 -FOBT positive -Patient to be transfused 1 unit -Trend H&H -PPI
[2023-12-01] VITALS (9 sets, daily range): BP systolic 117–153; BP diastolic 61–87; PULSE 86–92; RESP 16–18; TEMP 36.2–37.1; O2SAT 94–100
[2023-12-01 00:21] LABS: Absolute Lymphocyte Count 2.16 X10^3/uL (0.83-4.51); Absolute Neutrophil Count 4.6 X10^3/uL (2.0-7.7); Basophil# 0.03 X10^3/uL; Basophil% 0.4 % (0-1); Eosinophil# 0.11 X10^3/uL; Eosinophils% 1.4 % (0-5); Hemoglobin 8.4 g/dL (12.0-15.0); Lymphocyte # 2.16 X10^3/ul (0.83-4.51); Lymphocyte % 27.1 % (19-41); Mean Corp Hgb Conc 31.1 g/dL (32-36); Mean Corpuscular Volume 83.6 fL (81-99); Mean Platelet Vol. 11.4 fl (6.2-12.0); Monocyte# 1.06 X10^3/uL; Monocyte% 13.3 % (0-10); NRBC Flagged by Analyzer 0 % (0-5); Neutrophil # 4.58 X10^3/uL (2.7-7.7); Neutrophil % 57.5 % (47-70); Platelet Count 426 K/mm3 (150-450); RBC Distribution Width CV 15.6 % (11.6-14.6); RBC Distribution Width SD 47.4 fl (35.1-43.9); Red Blood Count 3.23 M/mm3 (4.2-5.4)
[2023-12-01 04:19] LABS: Absolute Lymphocyte Count 2.21 X10^3/uL (0.83-4.51); Absolute Neutrophil Count 3.4 X10^3/uL (2.0-7.7); Basophil# 0.02 X10^3/uL; Basophil% 0.3 % (0-1); Eosinophil# 0.14 X10^3/uL; Eosinophils% 2.1 % (0-5); Hematocrit 25.9 % (37-47); Lymphocyte # 2.21 X10^3/ul (0.83-4.51); Lymphocyte % 33.6 % (19-41); Mean Corp Hgb Conc 30.9 g/dL (32-36); Mean Corpuscular Hgb 25.3 pg (27.0-32.0); Monocyte% 12.2 % (0-10); NRBC Flagged by Analyzer 0 % (0-5); Neutrophil # 3.39 X10^3/uL (2.7-7.7); Neutrophil % 51.5 % (47-70); Platelet Count 430 K/mm3 (150-450); RBC Distribution Width CV 15.6 % (11.6-14.6); RBC Distribution Width SD 47.1 fl (35.1-43.9); Red Blood Count 3.16 M/mm3 (4.2-5.4); White Blood Count 6.6 K/mm3 (4.4-11.0)
[2023-12-01 04:31] LABS: Prothrombin Time (Protime)PT. 13.7 SECONDS (11.7-14.9)
[2023-12-01 04:32] LABS: Partial Thromboplast Time 27.8 Seconds (24.1-36.2)
[2023-12-01 04:38] LABS: Anion Gap 8 (5-15); BUN 18 mg/dL (7-18); BUN/Creat Ratio 15.8 RATIO (10-20); Calcium,Total 9.5 mg/dL (8.5-10.1); Chloride 110 mmol/L (98-107); Creatinine, Serum 1.14 mg/dL (0.55-1.02); EST Glomerular Filtration Rate 50 mL/min (>60); Est Glom Filt Rate - Afr Amer 60 mL/min (>60); Glucose 130 mg/dL (74-106); Potassium 3.7 mmol/L (3.5-5.1); Sodium Level 139 mmol/L (136-145)
--- NOTE | 2023-12-01 06:00 | EKG12_ITS ---
Test Reason : AM EKG Blood Pressure : / mmHG Vent. Rate : 083 BPM Atrial Rate : 083 BPM P-R Int : 148 ms QRS Dur : 074 ms QT Int : 374 ms P-R-T Axes : 062 071 058 degrees QTc Int : 439 ms Normal sinus rhythm Normal ECG When compared with ECG of 30-NOV-2023 15:32, MANUAL COMPARISON REQUIRED, DATA IS UNCONFIRMED Confirmed by SIOMARA STOKES, ELSIE ([id number]), editor & co founder LOGAN KNOX ([id number]) on 12/01/2023 1:05:04 PM Referred By: GERMAINE Confirmed By:ELSIE STRINGER MD
[2023-12-01 08:12] LABS: Bedside Glucose 132 mg/dL (74-106)
--- NOTE | 2023-12-01 08:15 | PN.HOSP_ITS ---
Reason for Visit Reason for Visit: Diagnoses Acute posthemorrhagic anemia (11/30/23) Essential (primary) hypertension (11/30/23) Other fecal abnormalities (11/30/23) Subjective Subjective Feeling ok. Short of breath x1 day. Objective Data Objective Data Vital Signs: Vital Signs Temp Pulse Resp BP Pulse Ox O2 Del Method 36.7 C 89 16 152/82 H 98 Room Air 12/01/23 02:35 12/01/23 02:35 12/01/23 02:35 12/01/23 02:35 12/01/23 02:35 12/01/23 02:35 Oxygen Delivery Method Room Air Weight: 90.4 kg Body Mass Index (BMI) 35.3 Intake & Output: Intake and Output for Last 24 Hours 11/29/23 11/30/23 12/01/23 23:59 23:59 23:59 Intake Total 110 / 110 500 / 500 Output Total 600 / 600 Balance 110 / 110 -100 / -100 Lab / Micro Data 12/01/23 04:00 12/01/23 04:00 Labs: Laboratory Results - last 24 hr 11/30/23 15:28: WBC 12.1 H, RBC 2.88 L, Hgb 7.3 L, Hct 24.5 L, MCV 85.1, MCH 25.3 L, MCHC 29.8 L, RDW Std Deviation 46.5 H, RDW Coeff of Neo 15.0 H, Plt Count 476 H, MPV 11.7, Immature Gran % (Auto) 0.400, Neut % (Auto) 74.0 H, Lymph % (Auto) 19.4, [place] % (Auto) 5.1, Eos % (Auto) 0.8, Baso % (Auto) 0.3, Absolute Neuts (auto) 9.0 H, Absolute Lymphs (auto) 2.36, Nucleated RBC % 0, D-Dimer Quant (PE/DVT) < 0.27 L, Sodium 137, Potassium 3.9, Chloride 110 H, Carbon Dioxide 20.0 L, Anion Gap 7, BUN 24 H, Creatinine 1.31 H, Estim Creat Clear Calc 41.91, Est GFR (MDRD) Af Amer 51 L, Est GFR (MDRD) Non-Af 43 L, BUN/Creatinine Ratio 18.3, Glucose 142 H, Calcium 9.8, Iron 21 L, TIBC 588 H, Iron Saturation 3.6 L, Ferritin 4 L, Troponin I High Sens 6, B-Natriuretic Peptide 219.4 H 11/30/23 16:15: Blood Type O POSITIVE, Antibody Screen NEGATIVE, Crossmatch See Detail 11/30/23 22:06: POC Glucose 101 11/30/23 23:55: WBC 8.0, RBC 3.23 L, Hgb 8.4 L, Hct 27.0 L, MCV 83.6, MCH 26.0 L , MCHC 31.1 L, RDW Std Deviation 47.4 H, RDW Coeff of Neo 15.6 H, Plt Count 426, MPV 11.4, Immature Gran % (Auto) 0.300, Neut % (Auto) 57.5, Lymph % (Auto) 27.1, Rich[place] % (Auto) 13.3 H, Eos % (Auto) 1.4, Baso % (Auto) 0.4, Absolute Neuts (auto) 4.6, Absolute Lymphs (auto) 2.16, Nucleated RBC % 0 12/01/23 04:00: WBC 6.6, RBC 3.16 L, Hgb 8.0 L, Hct 25.9 L, MCV 82.0, MCH 25.3 L , MCHC 30.9 L, RDW Std Deviation 47.1 H, RDW Coeff of Neo 15.6 H, Plt Count 430, MPV 11.0, Immature Gran % (Auto) 0.300, Neut % (Auto) 51.5, Lymph % (Auto) 33.6, [place] % (Auto) 12.2 H, Eos % (Auto) 2.1, Baso % (Auto) 0.3, Absolute Neuts (auto) 3.4, Absolute Lymphs (auto) 2.21, Nucleated RBC % 0, PT 13.7, INR 1.0, APTT 27.8, Sodium 139, Potassium 3.7, Chloride 110 H, Carbon Dioxide 21.0, Anion Gap 8, BUN 18, Creatinine 1.14 H, Estim Creat Clear Calc 48.30, Est GFR (MDRD) Af Amer 60, Est GFR (MDRD) Non-Af 50 L, BUN/Creatinine Ratio 15.8, Glucose 130 H, Calcium 9.5 12/01/23 06:37: POC Glucose 132 H Micro: Microbiology 11/30/23 20:00 Mucosa - Nose Respiratory Panel (PCR) - Final 11/30/23 20:00 Mucosa - Nose SARS-CoV-2, Influenza & RSV (PCR) - Final SARS-CoV-2 (COVID 19 PCR) 11/30/23 16:00 Stool Stool Occult Blood (DENISSE) - Final Occult Blood Positive Radiography Diagnostic Testing: Radiology Impression Chest X-Ray 11/30/23 15:52 IMPRESSION: There are no acute findings. Electronically Signed: Baldo Thornton MD at 16:26 EST Reading Location ID and State: [facility] / [place] , Service support , Rhythm Strip Rhythm Strip: Sinus Tach Rate: 110 Ectopy: None Physical Exam Const alert and no apparent distress Constitutional Narrative: having echocardiogram performed HEENT head/scalp atraumatic and moist oral mucous membranes Extremity normal to inspection Neuro no sensory deficits noted Sensorium / Orientation: awake Assessment & Plan Assessment/Plan (1) ABLA (acute blood loss anemia): (2) Occult GI bleeding: PLAN: Plan Symptomatic acute on chronic Anemia 2/2 GIB, upper vs lower * Previous scope w/ hemorrhoids and GI ulcers * Hemoglobin 7.3, previous was 8.5/9 * FOBT positive * GI c/s ABLA * Patient to be transfused 1 unit * Trend H&H * PPI * Hemodynamically stable for floor Dyspnea * Progressively worsening. Likely 2/2 her anemia. * Patient to be transfused a unit. Low likelihood of DVT or PE, EKG normal, chest x-ray unremarkable, troponin within normal limits. * Patient is anemic and this is likely contributed to her worsening dyspnea ho wever cannot rule out cardiac etiology contributing especially with slight elevation in BNP * Will get echocardiogram * Daily weights, I's and O's * Will also get covid and resp panels given acute worsening today COVID 19 * on room air. * no treatment at this time. * onset likely 11/30. Quarantine through 12/09. Chronic conditions: * HTN-Continue home medications * CKD stage III unclear subtype-GFR vacillates between 40-55 -Appears to be at baseline-Avoid nephrotoxic agents-Daily BMPs * GERD-Continue PPI * Type 2 diabetes mellitus-Glucose checks and sliding scale insulin-Hold metformin * Depression-On fluoxetine * Hyperlipidemia-On gemfibrozil and pravastatin DVT ppx: SCDs Charges/Coding Visit Charges Inpatient E&M: 34324 Subs Hosp L2
[2023-12-01] MEDS: Pantoprazole Sodium 40 MG in 0.9% Normal Saline (100mL MB+) 100 ML 330 MG IV ×2 (10:57→20:40)
[2023-12-01] MEDS: 0.9% Saline Lock 10 ML Syringe IV ×2 (10:58→20:40)
[2023-12-01] MEDS: Insulin Lispro 100 UNIT/ML INSULN.PEN SC ×2 (11:07→20:41)
--- NOTE | 2023-12-01 11:29 | CASEMGMT ---
GUI JEFFERSON Assessment Face to Face with patient for initial transition planning/care coordination assessment. GUI JEFFERSON introduced self and role at [facility], pt voices understanding. Pt is A&Ox4 and is resting comfortably in bed and is calm. Care providers, pharmacy, and demographics verified. Admitting dx: PATI VERGARA Strata: 2 PCP: Bernardo Specialists: Neftali, Lead Scientist in [place] for Macular Degeneration Preferred Pharmacy: [facility] Insurance: [facility] Prescription Benefit: Yes LNOK: Melany Jain (Sister), Rashi Keller (Son) Living Arrangements: Pt lives alone in a single story home with a BM with HR and 3 steps to enter the home without a HR with no issues. ADLs/IADLs: Ind Transportation: Pt drives, pt son or GD will drive pt home. DME: Walk in shower. Pt states that she is a borderline diabetic and takes metformin. Pt denies the need for a home BGM at this time. Pt denies any further DME needs. HHC/SNF: Denies history or needs. Pt?s goal: Home Plan: 6-click is 23, no therapy ordered. Pt denies the need for additional therapy at this time. Pt denies any home going needs at this time. Blair Mauricio RN, CM
[2023-12-01 11:33] LABS: Bedside Glucose 163 mg/dL (74-106)
--- NOTE | 2023-12-01 12:45 | IMM_PTH ---
PATHOLOGY RESULTS PATIENT: JUANI TRINH LOC: MS3 U#:[id number] AGE/SX: 73/F ROOM: [facility] RE11/30/[address]: Dr. Zohaib Leon DO : 1950 BED: 1 DIS: 12/02/2023 SPEC #: [id number] RECD: 12/02/23 08:49 STATUS: GENEVA REJanes #: [id number] BRIE: 12/01/23 12:[address]: Darvin Mcclure DEPT: IMMUNOHISTOCHEMISTRY RECD BY: Leila Sanchez ENTERED: 12/02/23 08:50 SP TYPE: IMMUNO OTHR DR: DO Dr. Zoie Parker DO Dr. Paige Pierce, MD Tissues: Stomach, NOS Procedures: H Pylori (initial) PHYSICIAN & INSTITUTION [place] [id number] SPECIMEN INFORMATION: Tissue Source: B - Gastric pylorus Clinical Info: Anemia Specimen Number: [id number] CPT code: 01385 METHODOLOGY: Deparaffinized sections of prefer/formalin-fixed tissue or PAP/DQ stained slides are incubated with monoclonal/polyclonal antibodies/oligonucleotide probes. Localization is made via biotin free immunoperoxidase method. Appropriate controls are performed and reacted as expected. Results on target cell population are indicated in the following table: RESULTS: ANTIBODY / CLONE RESULT Block B H Pylori (polyclonal) negative These tests were developed and their performance characteristics determined by [facility]. They may not have been cleared or approved by the U.S. Food and Drug Administration. The FDA has determined that such clearance or approval is not necessary. The above immunohistochemical/dualISH markers are ordered and reviewed by the Pathologist. INTERPRETATION: B. Gastric pylorus, biopsy: Negative for H. Pylori organisms. ANTONINO/mahad 12/03/23
--- NOTE | 2023-12-01 12:45 | EGD_PTH ---
PATHOLOGY RESULTS PATIENT: JUANI TRINH LOC: MS3 U#:[id number] AGE/SX: 73/F ROOM: [facility]324 RE11/30/[address]: Dr. Zohaib Leon DO : 1950 BED: 1 DIS: 12/02/2023 SPEC #: [id number] RECD: 12/02/23 08:16 STATUS: GENEVA RODRIGUES #: [id number] BRIE: 12/01/23 12:[address]: Darvin Mcclure DEPT: SURGICAL PATHOLOGY RECD BY: Nancy Peters ENTERED: 12/02/23 08:16 SP TYPE: EGD BIOPSY OTHR DR: DO Dr. Zoie Parker DO Dr. Paige Pierce, MD Tissues: Duodenum, NOS Gastric mucous membrane Esophageal mucous membrane Procedures: Special Stain Group II Surgery Specimen Level IV Alcian Blue/PAS (control) Comments: @ Ordering doctor for LAMBERT edited from to @ by KEM at 12/02/23 0850 @ Submitting doctor edited from to @ by RGOOD at 12/02/23 0850 HEADER OPERATION: EGD with biopsies PRE-OP DIAGNOSIS: Anemia TISSUE SUBMITTED: A - Duodenum biopsy, B - Gastric pylorus biopsy, C - Distal esophagus biopsy MICROSCOPIC DIAGNOSIS A. Duodenum, biopsy: A fragment of duodenal mucosa with mild Javi gland hyperplasia. B. Gastric pylorus, biopsy: Mild gastritis. See microscopic description and comment. C. Distal esophagus, biopsy: Fragments of gastroesophageal mucosa with chronic inflammation and changes consistent with gastroesophageal reflux disease Intestinal metaplasia (goblet cell metaplasia) not identified. See comment. SJ:tawanda 12/03/2023 COMMENT B. The results of immunohistochemistry for Helicobacter pylori will be reported separately ([id number]). C. Alcian blue/PAS stain with matched control is used in the evaluation of the specimen. MICROSCOPIC DESCRIPTION Slides are reviewed. B. The specimen shows fragments of gastric mucosa with chronic inflammatory cell infiltrates in the lamina propria consisting of lymphocytes and plasma cells, consistent with mild chronic gastritis. GROSS DESCRIPTION A - Received in fixative is one container labeled with the patient's name and designated duodenum biopsy. The specimen consists of one irregular fragment of light smith soft tissue that measures 0.4 x 0.3 x 0.1 cm. The specimen is totally submitted in one cassette. B - Received in fixative is one container labeled with the patient's name and designated gastric pylorus biopsy. The specimen consists of two irregular fragments of light smith soft tissue that in aggregate measure 0.6 x 0.3 x 0.1 cm. The specimen is totally submitted in one cassette. C - Received in fixative is one container labeled with the patient's name and designated distal esophagus biopsy. The specimen consists of multiple irregular fragments of light smith soft tissue that in aggregate measure 1.0 x 0.3 x 0.1 cm. The specimen is totally submitted in one cassette. / SJ:rg 12/02/2023 TC:3 CPT: 55145 x3, 72442
[2023-12-01] MEDS: Lactated Ringers 1,000 ML 15 ML IV (12:47)
--- NOTE | 2023-12-01 14:17 | OP.EGD_ITS ---
Patient Name: Candelaria Keller Procedure Date: 12/01/2023 1:24 PM Date of : 1950 Age: 73 Procedure: Upper GI endoscopy Indications: Iron deficiency anemia Providers: Darvin Mcclure DO Medicines: Monitored Anesthesia Care Patient Profile: This is a 73 year old female. Refer to note in patient chart for documentation of history and physical. Patient has symptoms. Complications: No immediate complications. Procedure: Pre-Anesthesia Assessment: - Prior to the procedure, a History and Physical was performed, and patient medications and allergies were reviewed. The patient is competent. The risks and benefits of the procedure and the sedation options and risks were discussed with the patient. All questions were answered and informed consent was obtained. Patient identification and proposed procedure were verified by the physician in the pre-procedure area. Mental Status Examination: alert and oriented. Airway Examination: normal oropharyngeal airway and neck mobility. Respiratory Examination: clear to auscultation. CV Examination: normal. Prophylactic Antibiotics: The patient does not require prophylactic antibiotics. Prior Anticoagulants: The patient has taken no anticoagulant or antiplatelet agents. ASA Grade Assessment: II - A patient with mild systemic disease. After reviewing the risks and benefits, the patient was deemed in satisfactory condition to undergo the procedure. The anesthesia plan was to use monitored anesthesia care (MAC). Immediately prior to administration of medications, the patient was re-assessed for adequacy to receive sedatives. The heart rate, respiratory rate, oxygen saturations, blood pressure, adequacy of pulmonary ventilation, and response to care were monitored throughout the procedure. The physical status of the patient was re-assessed after the procedure. After obtaining informed consent, the endoscope was passed under direct vision. Throughout the procedure, the patient's blood pressure, pulse, and oxygen saturations were monitored continuously. The gastroscope was introduced through the mouth, and advanced to the second part of duodenum. The upper GI endoscopy was accomplished without difficulty. The patient tolerated the procedure well. Scope In: 1:38:10 PM Scope Out: 1:45:06 PM Total Procedure Duration Time 0 hours 6 minutes 56 seconds Findings: There were esophageal mucosal changes suspicious for short-segment Purdy's esophagus present in the lower third of the esophagus. The maximum longitudinal extent of these mucosal changes was 2 cm in length. Mucosa was biopsied with a cold forceps for histology in a targeted manner at intervals of 1 cm in the lower third of the esophagus. One specimen bottle was sent to pathology. Estimated blood loss: none. Localized moderately congested mucosa was found in the prepyloric region of the stomach. Biopsies were taken with a cold forceps for histology. Verification of patient identification for the specimen was done. Biopsies were taken with a cold forceps for Helicobacter pylori testing. Verification of patient identification for the specimen was done. Estimated blood loss was minimal. Patchy mildly erythematous mucosa without active bleeding and with no stigmata of bleeding was found in the duodenal bulb. Biopsies were taken with a cold forceps for histology. Verification of patient identification for the specimen was done. Estimated blood loss was minimal. Impression: - Esophageal mucosal changes suspicious for short-segment Purdy's esophagus. Biopsied. - Congestive gastropathy. Biopsied. - Erythematous duodenopathy. Biopsied. Recommendation: - Return patient to [facility] for ongoing care. - Resume previous diet. - Continue present medications. - Await pathology results. Procedure Code(s): --- Professional --- 57607, Esophagogastroduodenoscopy, flexible, transoral; with biopsy, single or multiple CPT copyright 2021 [employer]. All rights reserved. The codes documented in this report are preliminary and upon otr flatbed company truck driver review may be revised to meet current compliance requirements. Darvin Mcclure DO 12/01/2023 2:16:34 PM This report has been signed electronically. Number of Addenda: 0 Note Initiated On: 12/01/2023 1:24 PM
--- NOTE | 2023-12-01 14:17 | OP.CCLET_ITS ---
12/01/2023 Zoie Chang [address] [place] [address] Re : Upper GI endoscopy procedure for Candelaria Keller Dear Dr. Chang This procedure was performed on Friday, December 01, 2023. My impressions and recommendations are as follows: Impressions : - Esophageal mucosal changes suspicious for short-segment Purdy's esophagus. Biopsied. - Congestive gastropathy. Biopsied. - Erythematous duodenopathy. Biopsied. Recommendations : - Return patient to hospital [facility] for ongoing care. - Resume previous diet. - Continue present medications. - Await pathology results. My findings are described in the full procedure note, which is enclosed. If I can be of further assistance, please feel free to contact me at . Sincerely, Darvin Mcclure, 12/01/2023 2:16:34 PM This report has been signed electronically.
[2023-12-01 14:37] LABS: Phosphorus 3.3 mg/dL (2.5-4.9)
[2023-12-01 14:41] LABS: Vitamin B12 281 pg/mL (211-911)
[2023-12-01 14:51] LABS: CRP 4.27 mg/L (0.0-3.0); LDH 195 U/L (84-246); Magnesium 1.8 mg/dL (1.6-2.6)
[2023-12-01 15:04] LABS: Erythrocyte Sedimentation Rate 59 mm/hr (0-30)
[2023-12-01] MEDS: Gemfibrozil 600 MG Tablet PO ×2 (16:34→20:40)
[2023-12-01] MEDS: FLUoxetine 10 MG Capsule PO (16:34)
[2023-12-01] MEDS: Bisoprolol Fumarate 5 MG Tablet PO (16:34)
[2023-12-01] MEDS: hydroCHLOROthiazide 6.25mg TAB 6.25 MG PO (16:34)
[2023-12-01 17:04] LABS: Bedside Glucose 137 mg/dL (74-106)
[2023-12-01] MEDS: Pravastatin 20 MG Tablet 10 MG PO (20:39)
[2023-12-01] MEDS: Latanoprost 0.005% 1 Bottle 1 DRP OPHTHALMIC (20:41)
[2023-12-01] MEDS: MELATONIN 3 MG TABLET PO (20:47)
[2023-12-01] MEDS: Acetaminophen 325 MG Tablet 650 MG PO (20:47)
[2023-12-01 21:05] LABS: Bedside Glucose 177 mg/dL (74-106)
[2023-12-02 02:45] VITALS: BP 133/86; PULSE 80; RESP 18; TEMP 36.6; O2SAT 100
[2023-12-02 06:47] LABS: Bedside Glucose 124 mg/dL (74-106)
--- NOTE | 2023-12-02 07:54 | PN.HOSP_ITS ---
Reason for Visit Reason for Visit: Diagnoses Acute posthemorrhagic anemia (11/30/23) Essential (primary) hypertension (11/30/23) Other fecal abnormalities (11/30/23) Objective Data Objective Data Vital Signs: Vital Signs Temp Pulse Resp BP Pulse Ox O2 Del Method 36.6 C 80 18 133/86 H 100 Room Air 12/02/23 02:45 12/02/23 02:45 12/02/23 02:45 12/02/23 02:45 12/02/23 02:45 12/02/23 02:45 Oxygen Delivery Method Room Air Weight: 90.4 kg Body Mass Index (BMI) 35.3 Intake & Output: Intake and Output for Last 24 Hours 11/30/23 12/01/23 12/02/23 23:59 23:59 23:59 Intake Total 110 / 110 1113.25 / 1613.25 1100 / 1100 Output Total 600 / 600 Balance 110 / 110 513.25 / 1013.25 1100 / 1100 Lab / Micro Data 12/01/23 04:00 12/01/23 04:00 Labs: Laboratory Results - last 24 hr 12/01/23 04:00: ESR 59 H, Phosphorus 3.3, Magnesium 1.8, Lactate Dehydrogenase 195, C-React Prot Ext Range 4.27 H, Vitamin B12 281, Folate 19.20 12/01/23 06:37: POC Glucose 132 H 12/01/23 11:05: POC Glucose 163 H 12/01/23 16:32: POC Glucose 137 H 12/01/23 20:36: POC Glucose 177 H 12/02/23 06:29: POC Glucose 124 H Micro: Microbiology 11/30/23 20:00 Mucosa - Nose Respiratory Panel (PCR) - Final 11/30/23 20:00 Mucosa - Nose SARS-CoV-2, Influenza & RSV (PCR) - Final SARS-CoV-2 (COVID 19 PCR) 11/30/23 16:00 Stool Stool Occult Blood (DENISSE) - Final Occult Blood Positive Radiography Diagnostic Testing: Radiology Impression Echocardiogram 11/30/23 19:36 Interpretation Summary The estimated ejection fraction is 65 %. No evidence for diastolic dysfunction. The left atrium is mildly enlarged. Trivial mitral valve insufficiency. Ordering Physician: Caridad Rapp Referring Physician: JACKIE ODELL Performed By: Carmen Mcnally RDCS Rhythm Strip Rhythm Strip: Sinus Tach Rate: 110 Ectopy: None Assessment & Plan Assessment/Plan (1) ABLA (acute blood loss anemia): (2) Occult GI bleeding: PLAN: Plan Symptomatic acute on chronic Anemia 2/2 GIB, upper vs lower * Previous scope w/ hemorrhoids and GI ulcers. EGD esophageal mucosal changes suspciious for Purdy's esophagus. Congestive gastropathy. Erythematous duodenopathy. * Hemoglobin 7.3, previous was 8.5/9 * FOBT positive * GI c/s ABLA * Patient to be transfused 1 unit * Trend H&H * PPI * Hemodynamically stable for floor Dyspnea * Progressively worsening. Likely 2/2 her anemia and COVID 19. * echocardiogram showed an EF 65%. * Daily weights, I's and O's COVID 19 * on room air. * no treatment at this time. * onset likely 11/30. Quarantine through 12/09. Chronic conditions: * HTN-Continue home medications * CKD stage III unclear subtype-GFR vacillates between 40-55 -Appears to be at baseline-Avoid nephrotoxic agents-Daily BMPs * GERD-Continue PPI * Type 2 diabetes mellitus-Glucose checks and sliding scale insulin-Hold metformin * Depression-On fluoxetine * Hyperlipidemia-On gemfibrozil and pravastatin DVT ppx: SCDs
--- NOTE | 2023-12-02 07:54 | PCM.PN.HOSP ---
Subjective Subjective Feels well. No further bleeding. Did have some MORENO while walking in her room. Objective Data Objective Data Vital Signs: Vital Signs Temp Pulse Resp BP Pulse Ox O2 Del Method 36.6 C 80 18 133/86 H 100 Room Air 12/02/23 02:45 12/02/23 02:45 12/02/23 02:45 12/02/23 02:45 12/02/23 02:45 12/02/23 02:45 Oxygen Delivery Method Room Air Weight: 90.4 kg Body Mass Index (BMI) 35.3 Intake & Output: Intake and Output for Last 24 Hours 11/30/23 12/01/23 12/02/23 23:59 23:59 23:59 Intake Total 110 / 110 1113.25 / 1613.25 1100 / 1100 Output Total 600 / 600 Balance 110 / 110 513.25 / 1013.25 1100 / 1100 Lab / Micro Data 12/02/23 06:25 12/01/23 04:00 Labs: Laboratory Results - last 24 hr 12/01/23 04:00: ESR 59 H, Phosphorus 3.3, Magnesium 1.8, Lactate Dehydrogenase 195, C-React Prot Ext Range 4.27 H, Vitamin B12 281, Folate 19.20 12/01/23 06:37: POC Glucose 132 H 12/01/23 11:05: POC Glucose 163 H 12/01/23 16:32: POC Glucose 137 H 12/01/23 20:36: POC Glucose 177 H 12/02/23 06:29: POC Glucose 124 H Micro: Microbiology 11/30/23 20:00 Mucosa - Nose Respiratory Panel (PCR) - Final 11/30/23 20:00 Mucosa - Nose SARS-CoV-2, Influenza & RSV (PCR) - Final SARS-CoV-2 (COVID 19 PCR) 11/30/23 16:00 Stool Stool Occult Blood (DENISSE) - Final Occult Blood Positive Radiography Diagnostic Testing: Radiology Impression Echocardiogram 11/30/23 19:36 Interpretation Summary The estimated ejection fraction is 65 %. No evidence for diastolic dysfunction. The left atrium is mildly enlarged. Trivial mitral valve insufficiency. Ordering Physician: Caridad Rapp Referring Physician: JACKIE ODELL Performed By: Carmen Mcnally RDCS Rhythm Strip Rhythm Strip: Sinus Tach Rate: 110 Ectopy: None Physical Exam Const alert and no apparent distress Constitutional Narrative: no respiratory distress. no conversational dyspnea. HEENT head/scalp atraumatic and moist oral mucous membranes Assessment & Plan Assessment/Plan (1) ABLA (acute blood loss anemia): (2) Occult GI bleeding: PLAN: Plan Symptomatic acute on chronic Anemia Previous scope w/ hemorrhoids and GI ulcers. EGD esophageal mucosal changes suspicious for Purdy's esophagus. Congestive gastropathy. Erythematous duodenopathy. Hemoglobin 7.3, previous was 8.5/9 FOBT positive GI c/s PPI BID for 1 month, then resume daily. ABLA Patient to be transfused 1 unit Stable. Ferrous sulfate Dyspnea Progressively worsening. Likely 2/2 her anemia and COVID 19. echocardiogram showed an EF 65%. Daily weights, I's and O's COVID 19 on room air. no treatment at this time. onset likely 11/30. Quarantine through 12/04, then wear a mask when out throught . . Chronic conditions: HTN-Continue home medications CKD stage III unclear subtype-GFR vacillates between 40-55 -Appears to be at baseline-Avoid nephrotoxic agents-Daily BMPs GERD-Continue PPI Type 2 diabetes mellitus-Glucose checks and sliding scale insulin-Hold metformin Depression-On fluoxetine Hyperlipidemia-On gemfibrozil and pravastatin DVT ppx: SCDs
[2023-12-02 08:33] LABS: Absolute Lymphocyte Count 1.64 X10^3/uL (0.83-4.51); Absolute Neutrophil Count 5.3 X10^3/uL (2.0-7.7); Basophil# 0.01 X10^3/uL; Basophil% 0.1 % (0-1); Hemoglobin 7.7 g/dL (12.0-15.0); Lymphocyte # 1.64 X10^3/ul (0.83-4.51); Lymphocyte % 21.2 % (19-41); Mean Corp Hgb Conc 30.8 g/dL (32-36); Mean Corpuscular Hgb 25.6 pg (27.0-32.0); Mean Corpuscular Volume 83.1 fL (81-99); Mean Platelet Vol. 11.9 fl (6.2-12.0); Monocyte# 0.73 X10^3/uL; Monocyte% 9.4 % (0-10); NRBC Flagged by Analyzer 0 % (0-5); Neutrophil # 5.33 X10^3/uL (2.7-7.7); Neutrophil % 68.9 % (47-70); Platelet Count 423 K/mm3 (150-450); RBC Distribution Width CV 15.9 % (11.6-14.6); Red Blood Count 3.01 M/mm3 (4.2-5.4); White Blood Count 7.7 K/mm3 (4.4-11.0)
--- NOTE | 2023-12-02 09:29 | DS.PCM_ITS ---
Providers Date of Admission: 11/30/23 Primary Care Physician: Dr. Zoie Odell, DO Consultations 11/30/23 19:36 Consult: Gastroenterology Routine Consulting Provider: [facility] Reason for Consult: occult bleed w/ symptomatic anemia EMERGENT Consult: No MD Notified: Yes Date Notified: 11/30/23 Time Notified: 19:05 Method of Notification: ED Physician Initiated Reason For Visit: CONCERN FOR GIB Diagnosis Discharge Diagnosis (1) ABLA (acute blood loss anemia): Status: Acute Code(s): D62 - Acute posthemorrhagic anemia (2) Occult GI bleeding: Status: Acute Code(s): R19.5 - Other fecal abnormalities Plan Symptomatic acute on chronic Anemia * Previous scope w/ hemorrhoids and GI ulcers. EGD esophageal mucosal changes suspicious for Purdy's esophagus. Congestive gastropathy. Erythematous duodenopathy. * Hemoglobin 7.3, previous was 8.5/9 * FOBT positive * GI c/s * PPI BID for 1 month, then resume daily. ABLA * Patient to be transfused 1 unit * Stable. * Ferrous sulfate Dyspnea * Progressively worsening. Likely 2/2 her anemia and COVID 19. * echocardiogram showed an EF 65%. * Daily weights, I's and O's COVID 19 * on room air. * no treatment at this time. * onset likely 11/30. Quarantine through 12/04, then wear a mask when out throught . . Chronic conditions: * HTN-Continue home medications * CKD stage III unclear subtype-GFR vacillates between 40-55 -Appears to be at baseline-Avoid nephrotoxic agents-Daily BMPs * GERD-Continue PPI * Type 2 diabetes mellitus-Glucose checks and sliding scale insulin-Hold metformin * Depression-On fluoxetine * Hyperlipidemia-On gemfibrozil and pravastatin DVT ppx: SCDs Medications at Discharge Home Medications diphenhydramine 25 mg-acetaminophen 500 mg tablet (Acetaminophen PM Extra Strength) 1 tab PO QHS 09/22/23 fluoxetine 10 mg capsule 10 mg PO DAILY 09/22/23 gemfibrozil 600 mg tablet 600 mg PO BID 09/22/23 latanoprost 0.005 % eye drops 1 drp ophthalmic (eye) QPM 09/22/23 pravastatin 10 mg tablet 10 mg PO DAILY 09/22/23 sucralfate 1 gram tablet 1 g PO 4X/DAY #56 tabs 10/15/23 bisoprolol 5 mg-hydrochlorothiazide 6.25 mg tablet 1 tab PO DAILY 11/30/23 metformin 500 mg tablet,extended release 24 hr 500 mg PO DAILY 11/30/23 ferrous sulfate 325 mg (65 mg iron) tablet 325 mg PO QODAY #30 tabs 12/02/23 pantoprazole 40 mg tablet,delayed release 40 mg PO BID #60 tabs 12/02/23 Hospital Course Procedures EGD Summary of Care Provided Minutes Spent on Discharge: 32 Hospital Course: Patient presents with shortness of breath. Patient was found to have a hemoglobin of 7.3 and is also COVID-19 positive. Patient did receive 1 unit of packed red blood cells. Hemoglobin has remained fairly stable since then though has drifted down slightly. Patient had no further bleeding that she is aware of. Patient did undergo an EGD on the that showed esophageal mucosal changes suspicious for short segment Purdy's esophagus. Congestive gastropathy and erythematous duodenopathy. Back in October, patient underwent a colonoscopy that showed hemorrhoids, external and internal hemorrhoids. Patient will be di scharged with ferrous sulfate with instructions to follow-up with primary care doctor in the next week to follow-up hemoglobin. Patient also advised to follow-up with gastroenterology for biopsies that he performed during her EGD. Additionally, patient does have COVID-19 which is also contributing to her shortness of breath. Patient did not require any oxygen so was not treated for COVID-19. Patient has been previously vaccinated for COVID-19. Patient recommended to quarantine through 04 December and then wear a mask from the second through the when she goes out. Weight / BMI Weight Weight: 90.4 kg Body Mass Index (BMI) 35.3 ABG / Lab / Microbiology Data 12/02/23 06:25 12/01/23 04:00 Laboratory: Laboratory Results - last 24 hr 12/01/23 04:00: ESR 59 H, Phosphorus 3.3, Magnesium 1.8, Lactate Dehydrogenase 195, C-React Prot Ext Range 4.27 H, Vitamin B12 281, Folate 19.20 12/01/23 11:05: POC Glucose 163 H 12/01/23 16:32: POC Glucose 137 H 12/01/23 20:36: POC Glucose 177 H 12/02/23 06:25: WBC 7.7, RBC 3.01 L, Hgb 7.7 L, Hct 25.0 L, MCV 83.1, MCH 25.6 L , MCHC 30.8 L, RDW Std Deviation 48.0 H, RDW Coeff of Neo 15.9 H, Plt Count 423, MPV 11.9, Immature Gran % (Auto) 0.400, Neut % (Auto) 68.9, Lymph % (Auto) 21.2, [place] % (Auto) 9.4, Eos % (Auto) 0.0, Baso % (Auto) 0.1, Absolute Neuts (auto) 5.3, Absolute Lymphs (auto) 1.64, Nucleated RBC % 0 12/02/23 06:29: POC Glucose 124 H Microbiology: Microbiology 11/30/23 20:00 Mucosa - Nose Respiratory Panel (PCR) - Final 11/30/23 20:00 Mucosa - Nose SARS-CoV-2, Influenza & RSV (PCR) - Final SARS-CoV-2 (COVID 19 PCR) 11/30/23 16:00 Stool Stool Occult Blood (DENISSE) - Final Occult Blood Positive Radiography Diagnostic Testing: Radiology Impression Echocardiogram 11/30/23 19:36 Interpretation Summary The estimated ejection fraction is 65 %. No evidence for diastolic dysfunction. The left atrium is mildly enlarged. Trivial mitral valve insufficiency. Ordering Physician: Caridad Rapp Referring Physician: ZOIE ODELL Performed By: Carmen Mcnally RDCS D/C Instructions Discharge Diet: No restrictions Meaningful Use Info Meaningful Use Diagnoses (Choose all that apply): None applicable Discharge Plan Admission Admit Date/Time: 11/30/23 18:59 Primary Reason for Your Visit: Anemia Attending Provider: Zohaib Leon Primary Care Provider: Zoie Odell Consulting Providers: Caridad Rapp Instructions Additional Instructions / Restrictions: You had anemia. Scope here did not show any obvious source of bleeding but is recommended that you increase your Protonix from once daily to twice daily for a month and then resume it daily thereafter. You also be placed on ferrous sulfate, which is iron. Is instructed to take this every other day to help with absorption and minimize issues with constipation. Additionally, you do have COVID-19 though you are not sick from it it is recommended that you quarantine for total 5 days, through December 04 and then from December 05 to the , wear a mask when you go out and are around others. Discharge Orders/Prescriptions Prescriptions: New ferrous sulfate 325 mg (65 mg iron) tablet 325 mg PO QODAY Qty: 30 0RF Continued pravastatin 10 mg tablet 10 mg PO DAILY gemfibrozil 600 mg tablet 600 mg PO BID fluoxetine 10 mg capsule 10 mg PO DAILY diphenhydramine-acetaminophen [Acetaminophen PM Extra Str] 25-500 mg tablet 1 tab PO QHS latanoprost 0.005 % drops 1 drp ophthalmic (eye) QPM Patient Comments: right eye sucralfate 1 gram tablet 1 g PO 4X/DAY Qty: 56 0RF Rx Instructions: Take 1 hour before meals and at bedtime bisoprolol-hydrochlorothiazide 5-6.25 mg tablet 1 tab PO DAILY metformin 500 mg tablet extended release 24 hr 500 mg PO DAILY Changed pantoprazole 40 mg tablet,delayed release (DR/EC) 40 mg PO BID Qty: 60 0RF Rx Instructions: Twice daily for a month and then once daily thereafter. Referrals / Follow Up: [facility] [Provider Group] - Within 1 Month Zoie Odell DO [Primary Care Provider] - Within 1 Week Disposition Disposition (needs filled in before D/C Order can be placed): Home, Self Care Charges/Coding Visit Charges Inpatient E&M: 16687 Disch Hosp >30min
[2023-12-02 10:30] VITALS: BP 128/60; PULSE 83; RESP 16; TEMP 36.6; O2SAT 99
--- NOTE | 2023-12-02 10:32 | PHA.DC.MR.R ---
Pharmacy [place] Med Reconciliation Pharmacy Service has performed discharge medication reconciliation for this patient. The patient's discharge medication list was reviewed for discrepancies and discrepancies were resolved. Medications at Discharge Home Medications diphenhydramine 25 mg-acetaminophen 500 mg tablet (Acetaminophen PM Extra Strength) 1 tab PO QHS 09/22/23 fluoxetine 10 mg capsule 10 mg PO DAILY 09/22/23 gemfibrozil 600 mg tablet 600 mg PO BID 09/22/23 latanoprost 0.005 % eye drops 1 drp ophthalmic (eye) QPM 09/22/23 pravastatin 10 mg tablet 10 mg PO DAILY 09/22/23 sucralfate 1 gram tablet 1 g PO 4X/DAY #56 tabs 10/15/23 bisoprolol 5 mg-hydrochlorothiazide 6.25 mg tablet 1 tab PO DAILY 11/30/23 metformin 500 mg tablet,extended release 24 hr 500 mg PO DAILY 11/30/23 ferrous sulfate 325 mg (65 mg iron) tablet 325 mg PO QODAY #30 tabs 12/02/23 pantoprazole 40 mg tablet,delayed release 40 mg PO BID #60 tabs 12/02/23
[2023-12-03 12:09] LABS: Anti-Centromere B Ab <0.2 AI (0.0-0.9); Anti-Chromatin <0.2 AI (0.0-0.9); Anti-Jo <0.2 AI (0.0-0.9); Anti-Scleroderma-70 AB <0.2 AI (0.0-0.9); Anti-dsDNA Ab <1 IU/mL (0-9); RNP Ab 3.6 AI (0.0-0.9); SJOGREN'S Anti-SS-B test < 0.2 AI (0.0-0.9); Smith Ab <0.2 AI (0.0-0.9)
[2023-12-04 11:09] LABS: Chromogranin A 209.1 ng/mL (0.0-101.8)
[2023-12-04 15:08] LABS: Gastrin, Serum 71 pg/mL (0-115)
[2023-12-04 16:10] LABS: Anti-Parietal Cell AB, QN 6.2 Units (0.0-20.0); Cytoplasmic Ab (C-ANCA) <1:20 titer (Neg:<1:20); Deamidated Gliadin IgA 4 units (0-19); Deamidated Gliadin IgG 7 units (0-19); Endomysial Antibody IgA Negative (Negative); Immunoglobulin A 163 mg/dL (64-422); Perinuclear Ab (P-ANCA) <1:20 titer (Neg:<1:20); t-Transglutaminase IgA <2 U/mL (0-3)
== END 2023-12-02 11:37 | disposition home or self-care (01) | DRG 811 ==
LOC: ED 18:31 → MS3 18:48
PROVIDERS: Anesthesiology; Internal Medicine Gastroenterology; Admitting Provider Internal Medicine; Emergency Provider Emergency Medicine; PCP Family Medicine
PROC: 0DJ08ZZ Inspection of Upper Intestinal Tract, Via Natural or Artificial Opening Endoscopic (ICD-10-PCS; CPT 43235; principal; 2023-12-01 12:40)
DX: D62 Acute posthemorrhagic anemia (principal); U07.1 COVID-19; E11.22 Type 2 diabetes mellitus with diabetic chronic kidney disease; N18.30 Chronic kidney disease, stage 3 unspecified; I12.9 Hypertensive chronic kidney disease with stage 1 through stage 4 chronic kidney disease, or unspecified chronic kidney disease; F32.A Depression, unspecified; R19.5 Other fecal abnormalities; E78.00 Pure hypercholesterolemia, unspecified; K64.8 Other hemorrhoids; K21.9 Gastro-esophageal reflux disease without esophagitis; K31.9 Disease of stomach and duodenum, unspecified; K22.70 Barrett's esophagus without dysplasia; K64.4 Residual hemorrhoidal skin tags; Z79.84 Long term (current) use of oral hypoglycemic drugs; Z87.891 Personal history of nicotine dependence; Z79.899 Other long term (current) drug therapy
CPT/HCPCS: 36415; 71046; 80048; 82274; 82607; 82728; 82746; 82784; 82941; 82962; 83516; 83540; 83550; 83615; 83735; 83880; 84100; 84484; 85025; 85379; 85610; 85652; 85730; 86140; 86225; 86235; 86255; 86256; 86316; 86340; 86850; 86900; 86901; 86920; 86922; 87631; 87633; 88305; 88313; 88342; 93005; 93306; 99285; J7040; J7050; J7120; P9016; A4216; J2405

== ENCOUNTER → 2023-12-09 | Outpatient (CLI) | payer MEDICARE, SELFPAY ==
[2023-12-09 12:39] LABS: Absolute Lymphocyte Count 1.72 X10^3/uL (0.83-4.51); Absolute Neutrophil Count 3.3 X10^3/uL (2.0-7.7); Basophil# 0.03 X10^3/uL; Basophil% 0.5 % (0-1); Eosinophil# 0.27 X10^3/uL; Eosinophils% 4.4 % (0-5); Hematocrit 28.1 % (37-47); Hemoglobin 8.1 g/dL (12.0-15.0); Lymphocyte # 1.72 X10^3/ul (0.83-4.51); Lymphocyte % 28.1 % (19-41); Mean Corp Hgb Conc 28.8 g/dL (32-36); Mean Corpuscular Hgb 24.8 pg (27.0-32.0); Mean Corpuscular Volume 85.9 fL (81-99); Mean Platelet Vol. 12.5 fl (6.2-12.0); Monocyte# 0.81 X10^3/uL; Monocyte% 13.2 % (0-10); NRBC Flagged by Analyzer 0 % (0-5); Neutrophil # 3.28 X10^3/uL (2.7-7.7); Neutrophil % 53.5 % (47-70); Platelet Count 391 K/mm3 (150-450); RBC Distribution Width CV 16.5 % (11.6-14.6); RBC Distribution Width SD 50.4 fl (35.1-43.9); Red Blood Count 3.27 M/mm3 (4.2-5.4); White Blood Count 6.1 K/mm3 (4.4-11.0)
== END | disposition home or self-care (01) ==
PROVIDERS: PCP Nurse Practitioner Family; Visit Provider Nurse Practitioner Family
DX: D64.9 Anemia, unspecified (principal)
CPT/HCPCS: 36415; 85025

== ENCOUNTER → 2024-01-06 | Outpatient (CLI) | payer MEDICARE, SELFPAY ==
[2024-01-06 12:44] LABS: Absolute Lymphocyte Count 2.29 X10^3/uL (0.83-4.51); Absolute Neutrophil Count 3.5 X10^3/uL (2.0-7.7); Basophil# 0.05 X10^3/uL; Basophil% 0.7 % (0-1); Eosinophil# 0.65 X10^3/uL; Eosinophils% 8.7 % (0-5); Hematocrit 26.6 % (37-47); Hemoglobin 7.9 g/dL (12.0-15.0); Lymphocyte # 2.29 X10^3/ul (0.83-4.51); Lymphocyte % 30.6 % (19-41); Mean Corp Hgb Conc 29.7 g/dL (32-36); Mean Corpuscular Hgb 24.8 pg (27.0-32.0); Mean Corpuscular Volume 83.4 fL (81-99); Mean Platelet Vol. 12.8 fl (6.2-12.0); Monocyte# 0.99 X10^3/uL; Monocyte% 13.2 % (0-10); NRBC Flagged by Analyzer 0 % (0-5); Neutrophil # 3.49 X10^3/uL (2.7-7.7); Neutrophil % 46.5 % (47-70); Platelet Count 364 K/mm3 (150-450); RBC Distribution Width CV 18.5 % (11.6-14.6); RBC Distribution Width SD 56.4 fl (35.1-43.9); Red Blood Count 3.19 M/mm3 (4.2-5.4); White Blood Count 7.5 K/mm3 (4.4-11.0)
[2024-01-06 13:33] LABS: AST(SGOT) 10 U/L (15-37); Alanine Aminotransfer ALT/SGPT 12 U/L (13-56); Albumin, Serum 3.8 g/dL (3.2-5.0); Alkaline Phosphatase 91 U/L (45-117); Anion Gap 8 (5-15); BUN 25 mg/dL (7-18); BUN/Creat Ratio 17.1 RATIO (10-20); Calcium,Total 9.5 mg/dL (8.5-10.1); Chloride 110 mmol/L (98-107); Creatinine, Serum 1.46 mg/dL (0.55-1.02); EST Glomerular Filtration Rate 38 mL/min (>60); Est Glom Filt Rate - Afr Amer 45 mL/min (>60); Ferritin 9 ng/mL (8-252); Globulin 3.8 g/dL (2.2-4.2); Glucose 122 mg/dL (74-106); Iron 32 ug/dL (50-170); Potassium 3.9 mmol/L (3.5-5.1); Protein, Total 7.6 g/dL (6.4-8.2); Sodium Level 140 mmol/L (136-145); Thyroid Stim Hormone (TSH) 1.81 uIU/mL (0.358-3.74)
== END | disposition home or self-care (01) ==
LOC: BFHLAB 08:20
PROVIDERS: PCP Family Medicine; Visit Provider Family Medicine
DX: E78.5 Hyperlipidemia, unspecified (principal); I10 Essential (primary) hypertension; Z51.81 Encounter for therapeutic drug level monitoring; R73.01 Impaired fasting glucose; D50.9 Iron deficiency anemia, unspecified
CPT/HCPCS: 36415; 80053; 82728; 83036; 83540; 84443; 85025

== ENCOUNTER → 2024-02-16 | Outpatient (CLI) | payer MEDICARE, SELFPAY ==
--- NOTE | 2024-02-16 10:11 | NM_ITS ---
CLINICAL: 73-year-old female with reported history of constipation. SEMI-SOLID PHASE 99m Tc SULFUR COLLOID GASTRIC EMPTYING STUDY COMPARISON: None available FINDINGS: The patient was administered 1.1 mCi of 99m Tc sulfur colloid mixed with oatmeal and consumed per os. Image acquisitions in the anterior-posterior were obtained for 60 minutes. There is prompt visualization of the stomach. There is no gastroesophageal reflux identified. The T ? raw data emptying was calculated to be 36.86 minutes, (Normal: 12-56 minutes). NM/Gastric Emptying Study IMPRESSION: 1. NORMAL 99m Tc sulfur colloid semi-solid phase (oatmeal) gastric emptying imaging examination. A. There is normal and preserved semi-solid phase gastric emptying compared to normal controls. (Mila et al, J Nucl Med Tech 38: 186, 2010). Electronically Signed: Ephraim Jacobo DO at 9:11 EDT ,
== END | disposition home or self-care (01) ==
PROVIDERS: PCP Family Medicine; Referring Provider Internal Medicine Gastroenterology; Visit Provider Internal Medicine Gastroenterology
DX: K59.00 Constipation, unspecified (principal)
CPT/HCPCS: 78264; A9541

== ENCOUNTER → 2024-04-16 | Outpatient (CLI) | payer MEDICARE, SELFPAY ==
[2024-04-16 12:25] LABS: Absolute Lymphocyte Count 2.12 X10^3/uL (0.83-4.51); Absolute Neutrophil Count 2.9 X10^3/uL (2.0-7.7); Basophil# 0.02 X10^3/uL; Basophil% 0.3 % (0-1); Eosinophil# 0.18 X10^3/uL; Eosinophils% 3.1 % (0-5); Hematocrit 33.1 % (37-47); Hemoglobin 10.7 g/dL (12.0-15.0); Lymphocyte # 2.12 X10^3/ul (0.83-4.51); Lymphocyte % 36.2 % (19-41); Mean Corp Hgb Conc 32.3 g/dL (32-36); Mean Corpuscular Hgb 30.1 pg (27.0-32.0); Mean Platelet Vol. 12.4 fl (6.2-12.0); Monocyte# 0.59 X10^3/uL; Monocyte% 10.1 % (0-10); NRBC Flagged by Analyzer 0 % (0-5); Neutrophil # 2.92 X10^3/uL (2.7-7.7); Platelet Count 317 K/mm3 (150-450); RBC Distribution Width CV 16.2 % (11.6-14.6); RBC Distribution Width SD 54.6 fl (35.1-43.9); Red Blood Count 3.56 M/mm3 (4.2-5.4); White Blood Count 5.9 K/mm3 (4.4-11.0)
[2024-04-16 12:53] LABS: Vitamin B12 318 pg/mL (211-911)
[2024-04-16 12:58] LABS: ALB/GLOB Ratio 0.9 RATIO (0.9-2.4); AST(SGOT) 11 U/L (15-37); Alanine Aminotransfer ALT/SGPT 13 U/L (13-56); Albumin, Serum 3.7 g/dL (3.2-5.0); Alkaline Phosphatase 118 U/L (45-117); Anion Gap 9 (5-15); BUN 32 mg/dL (7-18); BUN/Creat Ratio 24.1 RATIO (10-20); Calcium,Total 9.6 mg/dL (8.5-10.1); Chloride 109 mmol/L (98-107); Creatinine, Serum 1.33 mg/dL (0.55-1.02); EST Glomerular Filtration Rate 42 mL/min (>60); Est Glom Filt Rate - Afr Amer 51 mL/min (>60); Ferritin 194 ng/mL (8-252); Globulin 3.9 g/dL (2.2-4.2); Glucose 131 mg/dL (74-106); Iron 90 ug/dL (50-170); Potassium 3.6 mmol/L (3.5-5.1); Protein, Total 7.6 g/dL (6.4-8.2); Sodium Level 140 mmol/L (136-145)
== END | disposition home or self-care (01) ==
PROVIDERS: PCP Family Medicine; Referring Provider Family Medicine; Visit Provider Family Medicine
DX: Z51.81 Encounter for therapeutic drug level monitoring (principal); D50.9 Iron deficiency anemia, unspecified; E53.8 Deficiency of other specified B group vitamins
CPT/HCPCS: 36415; 80053; 82607; 82728; 83540; 85025

== ENCOUNTER → 2024-09-15 | Outpatient (CLI) | payer MEDICARE, SELFPAY ==
[2024-09-15 15:25] LABS: Absolute Lymphocyte Count 1.73 X10^3/uL (0.83-4.51); Absolute Neutrophil Count 5.2 X10^3/uL (2.0-7.7); Basophil# 0.03 X10^3/uL; Basophil% 0.4 % (0-1); Eosinophil# 0.13 X10^3/uL; Eosinophils% 1.7 % (0-5); Hematocrit 34.5 % (37-47); Hemoglobin 11.4 g/dL (12.0-15.0); Lymphocyte # 1.73 X10^3/ul (0.83-4.51); Lymphocyte % 22.3 % (19-41); Mean Corpuscular Hgb 31.4 pg (27.0-32.0); Mean Platelet Vol. 12.1 fl (6.2-12.0); Monocyte% 7.7 % (0-10); NRBC Flagged by Analyzer 0 % (0-5); Neutrophil # 5.23 X10^3/uL (2.7-7.7); Neutrophil % 67.5 % (47-70); Platelet Count 352 K/mm3 (150-450); RBC Distribution Width CV 13.2 % (11.6-14.6); RBC Distribution Width SD 46.6 fl (35.1-43.9); Red Blood Count 3.63 M/mm3 (4.2-5.4); White Blood Count 7.8 K/mm3 (4.4-11.0)
[2024-09-15 15:48] LABS: ALB/GLOB Ratio 0.8 RATIO (0.9-2.4); AST(SGOT) 9 U/L (15-37); Alanine Aminotransfer ALT/SGPT 14 U/L (13-56); Albumin, Serum 3.5 g/dL (3.2-5.0); Alkaline Phosphatase 119 U/L (45-117); Anion Gap 7 (5-15); BUN 23 mg/dL (7-18); BUN/Creat Ratio 18.1 RATIO (10-20); Calcium,Total 9.3 mg/dL (8.5-10.1); Chloride 109 mmol/L (98-107); Cholesterol 266 mg/dL (200); Creatinine, Serum 1.27 mg/dL (0.55-1.02); EST Glomerular Filtration Rate 44 mL/min (>60); Est Glom Filt Rate - Afr Amer 53 mL/min (>60); Ferritin 136 ng/mL (8-252); Globulin 4.3 g/dL (2.2-4.2); Glucose 82 mg/dL (74-106); High Density Lipoprotein 51 mg/dL; Iron 80 ug/dL (50-170); Potassium 3.6 mmol/L (3.5-5.1); Protein, Total 7.8 g/dL (6.4-8.2); Sodium Level 140 mmol/L (136-145); Triglycerides 87 mg/dL; Very Low Density Lipoprotein 17 mg/dL (5-40)
[2024-09-15 18:09] LABS: Vitamin B12 349 pg/mL (211-911)
== END | disposition home or self-care (01) ==
LOC: MTLAB 13:49
PROVIDERS: PCP Family Medicine; Referring Provider Family Medicine; Visit Provider Family Medicine
DX: Z51.81 Encounter for therapeutic drug level monitoring (principal); D50.9 Iron deficiency anemia, unspecified; E53.8 Deficiency of other specified B group vitamins; E78.5 Hyperlipidemia, unspecified
CPT/HCPCS: 36415; 80053; 80061; 82607; 82728; 83540; 85025